=== PATIENT | male | born 1940 | race Caucasian/White ===

== ENCOUNTER 2018-01-13 08:12 | Outpatient (CLI) | payer MEDICARE ==
--- NOTE | 2018-01-13 10:09 | CT ---
CT ANGIO CHEST WITH AND WITHOUT IV CONTRAST: Date: 01/13/18 HISTORY: Atrial fibrillation. Open heart surgery. Exam performed for venous mapping prior to ablation of atria l fibrillation. FINDINGS/IMPRESSION: Please see metal gauge maker's report for coronary and cardiac findings. There are vascular calcifications without evidence of aneurysmal dilatation of the thoracic aorta. No pleural or pericardial effusions are seen. There are mild dependent changes in the posterior lung fi elds. Degenerative changes are present in the spine. A small hiatal hernia is seen. POS: JEAN
[2018-01-13] MEDS ORDERED: Iopamidol 370 76% 100 ML VIAL ONE (16:50)
== END 2018-01-13 08:13 | disposition home or self-care (01) ==
LOC: CT 08:12
PROVIDERS: ATTEND Internal Medicine Cardiovascular Disease
DX: I48.1 Persistent atrial fibrillation (principal); R06.02 Shortness of breath; I70.0 Atherosclerosis of aorta; M47.899 Other spondylosis, site unspecified; K44.9 Diaphragmatic hernia without obstruction or gangrene; Z01.818 Encounter for other preprocedural examination
CPT/HCPCS: 71275; 80048; 82565; 85027; 85610; 85730; 93005; 93010

== ENCOUNTER 2018-01-13 10:46 | Outpatient (CLI) | payer MEDICARE ==
[2018-01-13 12:33] LABS: Hemoglobin 10.1 g/dL (14.0-18.0); Mean Corpuscular HGB CONC 31.3 g/dL (32.0-36.0); Mean Corpuscular Hemoglobin 23.5 pg (27.0-31.0); Mean Platelet Volume 10.1 fL (7.4-10.4); Platelet Count 217 thou/uL (130-400); RBC Distribution Width 14.1 % (11.5-14.5); Red Blood Cell (RBC) Count 4.32 mill/uL (4.70-6.10); White Blood Cell (WBC) Count 7.5 thou/uL (4.8-10.8)
[2018-01-13 12:38] LABS: INR-International Normal Ratio 1.1; PTT 29.4 SEC (22.9-36.1); Prothrombin Time 13.8 SEC (12.0-14.7)
[2018-01-13 12:58] LABS: Anion Gap 10 mmol/L (10-20); BUN (Urea Nitrogen) 17 mg/dL (8.4-25.7); Calc. Creatinine Clearance 0 mL/min (70-130); Calcium 9.2 mg/dL (7.8-10.44); Carbon Dioxide 25 mmol/L (23-31); Chloride 104 mmol/L (98-107); Estimated GFR-MDRD 81; Glucose 103 mg/dL (83-110); Potassium 3.8 mmol/L (3.5-5.1); Sodium 135 mmol/L (136-145)
--- NOTE | 2018-03-19 08:34 | EKG ---
Test Reason : Blood Pressure : / mmHG Vent. Rate : 055 BPM Atrial Rate : 050 BPM P-R Int : 000 ms QRS Dur : 144 ms QT Int : 464 ms P-R-T Axes : 000 -20 042 degrees QTc Int : 443 ms Atrial fibrillation with slow ventricular response Right bundle branch block Inferior infarct , age undetermined Abnormal ECG No previous ECGs available Confirmed by JORGE GOMEZ MD ([id number]) on 03/19/2018 8:33:43 AM Referred By: LI Confirmed By:JORGE GOMEZ MD
== END 2018-01-13 10:47 | disposition home or self-care (01) ==
LOC: LABBT 10:46
PROVIDERS: ATTEND Internal Medicine Cardiovascular Disease
DX: Z01.818 Encounter for other preprocedural examination (principal); I48.91 Unspecified atrial fibrillation
CPT/HCPCS: 80048; 85027; 85610; 85730; 93005; 93010

== ENCOUNTER 2018-01-20 11:53 | Day surgery (SDC) | payer MEDICARE ==
[2018-01-13 11:26] VITALS: BMI 31.3
[2018-01-20] MEDS ORDERED: Heparin 30,000 units/30 ml VIAL ONE (14:57)
[2018-01-20] MEDS ORDERED: Ondansetron HCl/PF 4 MG/2 ML Vial ONE (14:57)
[2018-01-20] MEDS ORDERED: Propofol 200 MG/20 ML VIAL ONE (14:57)
[2018-01-20] MEDS ORDERED: PHENYLEPHRINE-NS 100 MCG/ML 10 ML SYRINGE ONE (14:57)
[2018-01-20] MEDS ORDERED: Heparin 10,000 UNITS/1 ML VIAL ONE ×2 (15:15→15:32)
[2018-01-20] MEDS ORDERED: Phenylephrine HCL 10 MG/ML VIAL ONE (15:20)
[2018-01-20] MEDS ORDERED: Fentanyl 100 MCG/2 ML VIAL ONE ×2 (15:20→18:05)
[2018-01-20] MEDS ORDERED: Lidocaine 1% (PF) 30 ML VIAL ONE (15:26)
[2018-01-20] MEDS ORDERED: Furosemide 40 MG/4 ML VIAL ONE (15:32)
[2018-01-20] MEDS ORDERED: Protamine Sulfate 50 MG/5 ML VIAL ONE (15:32)
[2018-01-20] MEDS ORDERED: Isoproterenol 0.2 MG/1 ML AMP ONE (16:14)
[2018-01-20] MEDS ORDERED: Ondansetron HCl/PF 4 MG/2 ML Vial IVP PRN ×2 (18:26→20:10)
[2018-01-20] MEDS ORDERED: Promethazine HCl 25 MG/ML VIAL IM PRN (18:26)
[2018-01-20] MEDS ORDERED: Promethazine HCl 25 MG/ML VIAL SLOW IVP PRN (18:26)
[2018-01-20] MEDS ORDERED: Meperidine HCl/PF 25 MG/ML VIAL ONE (18:42)
--- NOTE | 2018-01-20 19:13 | OP ---
DATE OF PROCEDURE: 01/20/2018 PROCEDURES: 1. Comprehensive EP testing with 3D mapping and ablation of atrial fibrillation. 2. Transseptal catheterization x2. 3. Cardiac medication infusion. CLINICAL INDICATION: Persistent atrial fibrillation. PNEUMATIC TESTER: Tobias Rosado M.D. ASA CLASSIFICATION: III. ANESTHESIA: General endotracheal anesthesia. ESTIMATED BLOOD LOSS: 5 mL TOTAL FLUOROSCOPY TIME: Zero. TOTAL RADIOFREQUENCY TIME: 61 minutes and 36 seconds. ACUTE COMPLICATIONS: None. METHODS: After informed consent was obtained, the patient taken to the EP lab in a fasting state. [facility] groins were prepped and draped using ultrasound guidance. The right and left femoral veins were accessed and wires were inserted into the central venous systems. The wires were used to place an 11 Nigerien and 8 Nigerien sheath in the left groin, two 8 Nigerien sheath in the right groin and all 8 Frenc h sheaths were then replaced by long sheaths for catheter stability. A 10 Nigerien echo probe was plac ed in the left groin advanced to the right atrium and the right ventricle for imaging. A 7 Nigerien 20 pole catheter was placed in the left groin, advanced into the coronary sinus. A circular ablation c atheter placed in right groin and advanced to the right atrium and the coronary sinus. A 3D map was obtained using the [employer] 3D mapping system. The patient was anticoagulated and transsepta l catheterization was performed twice. A 3D map was obtained the left atrium and an esophageal tempe rature probe was placed in the esophagus co-located with a sensored catheter for positioning within t 3D mapping system. Ablation was delivered completely isolating all four pulmonary veins and the p osterior wall of the left atrium. Ablation was also delivered to debulk the coronary sinus. The pat ient underwent cardioversion restoring sinus rhythm. No further sustained arrhythmias are seen. Aft er an observation period, catheters were withdrawn. Heparin reversed, sheaths were pulled. Hemostas is was achieved with direct pressure. RESULTS: 1. Baseline intervals, HV interval 36 milliseconds. Patient was then coarse atrial fibrillation at the beginning of procedure. 2. Aggressive antral isolation was performed of all four pulmonary veins, left atrium, as well as th e area over the coronary sinus from the left atrial positions as well as ablation within the coronary sinus for isolation and debulking of the coronary sinus. 3. Ablation detail with total of 61 minutes and 36 seconds were delivered with a [employer] Chandler op en, irrigated ablation catheter to isolate the posterior wall and the pulmonary veins of the left atr ium and to debulk the coronary sinus. IMPRESSION: Successful ablation of left atrial triggers for atrial fibrillation including vein isola tion and posterior wall isolation. RECOMMENDATION: Continue with oral anticoagulation for at least 3-6 months.
[2018-01-20] MEDS ORDERED: Mag-Al 1200 mg/1200 mg/30 ML UDCUP PO PRN (20:10)
[2018-01-20] MEDS ORDERED: diphenhydrAMINE 25 MG CAP PO PRN (20:10)
[2018-01-20] MEDS ORDERED: Bisacodyl 5 MG TAB PO PRN (20:10)
[2018-01-20] MEDS ORDERED: Temazepam 15 MG CAP PO PRN (20:10)
[2018-01-20] MEDS ORDERED: Silver Sulfadiazine 1% Cream 50 GM JAR TOP PRN (20:10)
[2018-01-20] MEDS ORDERED: Acetaminophen 325 MG TAB PO PRN (20:10)
[2018-01-20] MEDS ORDERED: traMADol HCl 50 MG TAB PO PRN (20:10)
[2018-01-20] MEDS ORDERED: Bisacodyl 10 MG SUPP PR PRN (20:10)
[2018-01-20] MEDS ORDERED: Nitroglycerin 0.4 MG TAB (25 Tab Bottle) SL PRN (20:10)
[2018-01-20] MEDS ORDERED: Atorvastatin Calcium 40 MG TAB PO SCH (21:00)
[2018-01-20] MEDS ORDERED: metFORMIN 500 MG TAB PO SCH (21:00)
[2018-01-20] MEDS ORDERED: Calcium Polycarbophil 625 MG TAB PO SCH (21:00)
[2018-01-20] MEDS ORDERED: Calcium Carbonate 600 MG TAB PO SCH (21:00)
[2018-01-20] MEDS: Fish Oil 1,000 MG CAP PO SCH (21:17)
[2018-01-21] MEDS: Apixaban 5 MG TAB PO SCH ×2 (03:37→08:46)
[2018-01-21] MEDS: Fish Oil 1,000 MG CAP PO SCH (08:47)
[2018-01-21] MEDS ORDERED: Atenolol 25 MG TAB PO SCH (09:00)
[2018-01-21] MEDS ORDERED: Losartan 25 MG TAB PO SCH (09:00)
[2018-01-21] MEDS ORDERED: Hydrochlorothiazide 25 MG TAB PO SCH (09:00)
[2018-01-21] MEDS ORDERED: Multivitamin W/ Minerals 1 TAB PO SCH (09:00)
[2018-01-21] MEDS ORDERED: Amlodipine 5 MG TAB PO SCH (09:00)
[2018-01-21] MEDS ORDERED: Aspirin 81 mg Enteric Coated Tablet PO SCH (09:00)
[2018-01-21 10:57] LABS: Hemoglobin 10.2 g/dL (14.0-18.0); Platelet Count 201 thou/uL (130-400)
[2018-01-21 11:12] VITALS: BP 112/69; TEMP 98
[2018-01-21] MEDS ORDERED: Furosemide 40 MG TAB PO SCH (13:15)
--- NOTE | 2018-01-21 22:25 | DIS ---
DATE OF SERVICE: 01/21/2018 REFERRING PHYSICIAN: Yarelis Ortiz M.D. I am discharging Mr. Wells from our [facility]. His admitting diagnoses were, 1. Chronic persistent atrial fibrillation approximately in 05/2017. 2. Chronic artery disease with bypass grafting surgery in 2000. B. Occluded graft for left heart catheterization on 07/11/2017 with preserved left ventricular function. 3. Coronary artery disease risk factors including diabetes, hypertension, hyperlipidemia. 4. Status post elective pulmonary venous isolation and left atrial ablation procedure by Dr. Rosado on 01/19/2018 with also ablating the coronary sinus, basal left atrium, eventual cardioversion and showing sinus rhythm. Total radiofrequency time of 61 minutes and 36 seconds. HOSPITAL COURSE: Mr. Wells is tolerating procedure well. Subsequently, he remained stable. PHYSICAL EXAMINATION: VITAL SIGNS: Blood pressure 112/69, heart rate 86, respiratory rate 16, temperature 98.3 Fahrenheit, O2 sats are 97%. Telemetry strips reveal sinus rhythm. Reveals no significant groin hematoma. NECK: Neck veins are not distended. CHEST: Coarse, no crackles. HEART: Heart sounds are regular to rate and rhythm, no murmur or gallop. ABDOMEN: Benign. Bowel sounds positive. He had about minimal urinary hesitation and was able to void later freely. Our plan is to discharge him home with his usual medications. Also adding Carafate 1 g four times a day for two weeks, Protonix 40 mg daily for another month. He was given Lasix and potassium, 4 mg Lasix to be taken for three days and as needed, potassium along with it. He was also given colchicine 0.3 mg daily for prevention of post-ablation pericarditis( 0.3 mg daily for a week). The patient is to follow up in our office about six weeks. All questions of the patient, family and staff answered. Spent total of 45 minutes with the above and preparing this report. MASOOD
== END 2018-01-21 15:07 | disposition home or self-care (01) ==
LOC: CCL 11:53 → 2SW 19:09 → CCL 01-21 15:07
PROVIDERS: ATTEND Internal Medicine Cardiovascular Disease
PROC: 5A2204Z Restoration of Cardiac Rhythm, Single (ICD-10-PCS; principal; 2018-01-20)
DX: I48.1 Persistent atrial fibrillation (principal); I25.10 Atherosclerotic heart disease of native coronary artery without angina pectoris; I10 Essential (primary) hypertension; E11.9 Type 2 diabetes mellitus without complications; E78.5 Hyperlipidemia, unspecified; Z88.0 Allergy status to penicillin
CPT/HCPCS: 76942; 82565; 82962; 85014; 85018; 85049; 85347 ×2; 92960; 93613; 93623; 93656; 96374; C1731; C1732 ×3; C1759; C1769; 36415; 36416; 93005; 93010; J1644; J1940; J2001; J2175; J2370; J2405; J2704; J2720; J3010

== ENCOUNTER 2018-01-27 10:01 | Outpatient (CLI) | payer MEDICARE ==
[2018-01-27 10:55] LABS: Hemoglobin 9.4 g/dL (14.0-18.0); Mean Corpuscular HGB CONC 31.6 g/dL (32.0-36.0); Mean Corpuscular Hemoglobin 23.1 pg (27.0-31.0); Mean Corpuscular Volume 72.9 fl (80.0-94.0); Mean Platelet Volume 9.1 fL (7.4-10.4); Platelet Count 210 thou/uL (130-400); RBC Distribution Width 14.9 % (11.5-14.5); Red Blood Cell (RBC) Count 4.09 mill/uL (4.70-6.10)
[2018-01-27 11:00] LABS: INR-International Normal Ratio 1.3; PTT 33.3 SEC (22.9-36.1)
[2018-01-27 11:19] LABS: Anion Gap 10 mmol/L (10-20); BUN (Urea Nitrogen) 16 mg/dL (8.4-25.7); Calc. Creatinine Clearance 0 mL/min (70-130); Calcium 9.3 mg/dL (7.8-10.44); Carbon Dioxide 27 mmol/L (23-31); Chloride 100 mmol/L (98-107); Estimated GFR-MDRD 67; Glucose 103 mg/dL (83-110); Potassium 3.1 mmol/L (3.5-5.1); Sodium 134 mmol/L (136-145)
--- NOTE | 2018-01-28 08:09 | EKG ---
Test Reason : Blood Pressure : / mmHG Vent. Rate : 071 BPM Atrial Rate : 234 BPM P-R Int : 000 ms QRS Dur : 152 ms QT Int : 430 ms P-R-T Axes : 000 021 047 degrees QTc Int : 467 ms Atrial fibrillation Right bundle branch block Cannot rule out Inferior infarct , age undetermined Abnormal ECG When compared with ECG of 21-JAN-2018 05:15, Atrial fibrillation has replaced Sinus rhythm Confirmed by DR. Kwan LANDA ([id number]) on 01/28/2018 8:08:55 AM Referred By: [facility] Confirmed By:DR. Kwan LANDA
== END 2018-01-27 10:02 | disposition home or self-care (01) ==
LOC: LABBT 10:01
PROVIDERS: ATTEND Internal Medicine Cardiovascular Disease
DX: Z01.818 Encounter for other preprocedural examination (principal); I48.91 Unspecified atrial fibrillation
CPT/HCPCS: 80048; 85027; 85610; 85730; 93005; 93010

== ENCOUNTER 2018-01-30 09:58 | Day surgery (SDC) | payer MEDICARE ==
[2018-01-27 10:15] VITALS: BMI 31.4
[2018-01-30] MEDS ORDERED: Diprivan 20 ML ONE (13:14)
--- NOTE | 2018-01-30 14:05 | OP ---
DATE OF SERVICE: 01/30/2018 REFERRING PHYSICIAN: Dr. Rosado and Dr. Ortiz. REASON FOR PROCEDURE: Mr. Wells is a 77-year-old man with history of persistent atrial fibrillatio n/atypical flutters. He underwent a pulmonary venous isolation procedure on 01/20/2018. He had a re currence and we started Multaq, but so far no chemical cardioversion occurred. He has been continuin g on his blood thinners to his Eliquis. Here for cardioversion. PROCEDURE: Patient received propofol for deep sedation. After adequate sedation achieved, a synchro nized 75 joule shock did not, but subsequent 150 joule shock probably converted the patient back to s inus rhythm. CONCLUSION: Successful cardioversion. PLAN: Continue Multaq and Eliquis for now. Discontinuation of Multaq at a later date.
[2018-01-30] MEDS ORDERED: Propofol 200 MG/20 ML VIAL ONE (16:47)
== END 2018-01-30 14:18 | disposition home or self-care (01) ==
LOC: CCL 09:58
PROVIDERS: ATTEND Internal Medicine Cardiovascular Disease
PROC: 5A2204Z Restoration of Cardiac Rhythm, Single (ICD-10-PCS; principal; 2018-01-30)
DX: I48.1 Persistent atrial fibrillation (principal); I48.4 Atypical atrial flutter; I25.10 Atherosclerotic heart disease of native coronary artery without angina pectoris; E78.5 Hyperlipidemia, unspecified; I10 Essential (primary) hypertension; E11.9 Type 2 diabetes mellitus without complications; Z79.01 Long term (current) use of anticoagulants; Z79.82 Long term (current) use of aspirin; Z79.84 Long term (current) use of oral hypoglycemic drugs; Z79.899 Other long term (current) drug therapy; Z88.0 Allergy status to penicillin; Z98.61 Coronary angioplasty status; Z95.1 Presence of aortocoronary bypass graft; Z98.890 Other specified postprocedural states
CPT/HCPCS: 92960; J2704

== ENCOUNTER 2018-03-10 13:28 | Inpatient (IN) | payer MEDICARE ==
[2018-03-10 15:01] LABS: ALT (SGPT) 24 U/L (8-55); AST (SGOT) 18 U/L (5-34); Albumin 3.7 g/dL (3.4-4.8); Alkaline Phosphatase 39 U/L (40-150); Anion Gap 11 mmol/L (10-20); BUN (Urea Nitrogen) 27 mg/dL (8.4-25.7); Bilirubin, Total 0.6 mg/dL (0.2-1.2); CK (CPK) 68 U/L (30-200); Calc. Creatinine Clearance 0 mL/min (70-130); Calcium 8.7 mg/dL (7.8-10.44); Carbon Dioxide 24 mmol/L (23-31); Chloride 106 mmol/L (98-107); Estimated GFR-MDRD 55; Globulin 2.3 g/dL (2.4-3.5); Glucose 103 mg/dL (83-110); Potassium 4.5 mmol/L (3.5-5.1); Sodium 136 mmol/L (136-145)
[2018-03-10 15:02] LABS: CKMB 1.8 ng/mL (0-6.6); Troponin I Less than 0.010 ng/mL (< 0.028)
[2018-03-10 15:04] LABS: #Basophils 0.1 thou/uL (0.0-0.2); #Eosinphils 0.1 thou/uL (0.0-0.7); #Lymphocytes 1.5 thou/uL (1.20-3.40); #Monocytes 0.6 thou/uL (0.11-0.59); #Neutrophils 3.9 thou/uL (1.40-6.50); %Basophils 1.3 % (0.0-1.0); %Eosinophils 1.7 % (0.0-10.0); %Lymphocytes 24.2 % (21.0-51.0); %Monocytes 9.6 % (0.0-10.0); %Neutrophils 63.2 % (42.0-75.0); Anisocytosis SLIGHT = 6-15 cells (100X) (0-5/hpf); Band 1 % (5-11); Elliptocytes SLIGHT = 2-5 cells (100X) (0-1/hpf); Eosinophils 1 % (0-10); Hemoglobin 5.2 g/dL (14.0-18.0); Hypochromia MODERATE=16-30 cells (100X) (0-5/hpf); Lymphocytes 16 % (21-51); MDiff Complete? YES; Mean Corpuscular HGB CONC 31.5 g/dL (32.0-36.0); Mean Corpuscular Hemoglobin 21.6 pg (27.0-31.0); Mean Corpuscular Volume 68.6 fl (80.0-94.0); Mean Platelet Volume 8.7 fL (7.4-10.4); Microcytosis SLIGHT = 6-15 cells (100X) (0-5/hpf); Monocytes 8 % (0-10); Neutrophil 72 % (42-75); PLT Morphology Comment Appears Adequate; Platelet Count 236 thou/uL (130-400); RBC Distribution Width 14.6 % (11.5-14.5); Reactive Lymphocytes 1 % (0-10); Red Blood Cell (RBC) Count 2.41 mill/uL (4.70-6.10); Reflex for Review?? YES; White Blood Cell (WBC) Count 6.1 thou/uL (4.8-10.8)
[2018-03-10 16:03] LABS: Reticulocyte Count 4.3 % (0.5-1.5)
[2018-03-10 16:04] LABS: Iron 8 ug/dL (65-175); Iron Binding Capacity, Total 413 mcg/dL (261-462)
[2018-03-10 16:37] LABS: Folate (Folic Acid) 15.5 ng/mL (7.0-31.4)
[2018-03-10] MEDS ORDERED: Ondansetron ODT 4 MG TAB SL PRN (17:29)
[2018-03-10] MEDS ORDERED: Acetaminophen 325 MG TAB PO PRN ×2 (17:29→19:39)
[2018-03-10] MEDS ORDERED: Ondansetron PF 4 MG/2 ML Vial IVP PRN ×2 (17:29→19:39)
[2018-03-10 17:38] VITALS: BMI 32.1
[2018-03-10 18:36] LABS: Hemoglobin 5.1 g/dL (14.0-18.0); Platelet Count 220 thou/uL (130-400)
[2018-03-10 18:47] LABS: Troponin I Less than 0.010 ng/mL (< 0.028)
[2018-03-10] MEDS ORDERED: HumaLOG 300 UNITS/3 ML VIAL SC PRN (19:39)
[2018-03-10] MEDS ORDERED: Dextrose 5% in Water 1,000 ML IV PRN (19:39)
[2018-03-10] MEDS ORDERED: Ondansetron ODT 4 MG TAB PO PRN (19:39)
[2018-03-10] MEDS ORDERED: Dextrose 50% Abboject 50 ML SYRINGE SLOW IVP PRN (19:39)
[2018-03-11] MEDS: Pantoprazole 40 MG VIAL IVP SCH ×3 (00:22→20:55)
[2018-03-11] MEDS: Sodium Chloride 0.9% 1,000 ML IV SCH ×3 (04:02→19:13)
[2018-03-11 05:03] LABS: Hemoglobin 7.9 g/dL (14.0-18.0)
[2018-03-11 05:21] LABS: Anion Gap 7 mmol/L (10-20); BUN (Urea Nitrogen) 20 mg/dL (8.4-25.7); Calc. Creatinine Clearance 89 mL/min (70-130); Calcium 8.4 mg/dL (7.8-10.44); Carbon Dioxide 24 mmol/L (23-31); Chloride 107 mmol/L (98-107); Estimated GFR-MDRD 79; Glucose 93 mg/dL (83-110); Potassium 4.1 mmol/L (3.5-5.1); Sodium 134 mmol/L (136-145)
[2018-03-11 05:38] LABS: #Eosinphils 0.2 thou/uL (0.0-0.7); #Lymphocytes 1.8 thou/uL (1.20-3.40); #Monocytes 0.9 thou/uL (0.11-0.59); #Neutrophils 4.1 thou/uL (1.40-6.50); %Basophils 0.4 % (0.0-1.0); %Lymphocytes 26.1 % (21.0-51.0); %Neutrophils 57.6 % (42.0-75.0); Hemoglobin 7.9 g/dL (14.0-18.0); Mean Corpuscular HGB CONC 32.2 g/dL (32.0-36.0); Mean Corpuscular Hemoglobin 24.5 pg (27.0-31.0); Mean Platelet Volume 8.6 fL (7.4-10.4); Platelet Count 231 thou/uL (130-400); RBC Distribution Width 17.1 % (11.5-14.5); Red Blood Cell (RBC) Count 3.23 mill/uL (4.70-6.10)
--- NOTE | 2018-03-11 09:26 | CON ---
DATE OF CONSULTATION: 03/11/2018 HISTORY OF PRESENT ILLNESS: The patient is a 77-year-old male who was in his normal state of health until a few days prior to admission when he developed progressive shortness of breath and d izziness with walking. He had no syncope and no chest pain. For several weeks prior to admission, thuan kirkpatrick noticed his stools were darker brown in color. He had no nausea or vomiting. He did have some epi gastric pain. He has had no weight loss, nausea, vomiting or other changes. The patient has been on Eliquis. He thinks for less than a year for atrial fibrillation. He is a patient of Dr. Garrido and has undergone upper endoscopy in 04/2015 for surveillance of Arenas's esophagus. He has short segme nt Arenas's, medium hiatal hernia and a gastric ulcer. This was all biopsied and stomach biopsy shira wed reactive gastropathy. No Helicobacter pylori. Arenas's biopsies showed Arenas's mucosa. [place] noscopy was performed at the same time for history of colon polyps. This showed moderate diverticula and internal hemorrhoids. PAST MEDICAL HISTORY: Includes coronary artery disease, diabetes mellitus, hyperlipidemia, hypertens ion, myocardial infarction. PAST MEDICAL HISTORY: Includes cardiac stent, coronary artery bypass, prostate surgery, hand surgery . ALLERGIES: Include PENICILLIN. MEDICATIONS: Include Norvasc 1 p.o. daily, atorvastatin 1 p.o. at bedtime, aspirin 81 mg 1 p.o. paty y, Eliquis 1 p.o. b.i.d., calcium carbonate 1 p.o. q.p.m., fish oil 1 p.o. b.i.d., multivitamin 1 p.o . daily, hydrochlorothiazide 1 p.o. day, nitroglycerin 1 p.o. q.4 hours p.r.n. chest pain, losartan 1 p.o. daily, Carafate 1 gram p.o. q.6 hours, omeprazole he thinks dose was 40 mg b.i.d. and recently changed to once daily, metformin 500 mg 1 p.o. daily. SOCIAL HISTORY: Does not smoke or drink. FAMILY HISTORY: Negative for GI or liver disease. REVIEW OF SYSTEMS: CONSTITUTIONAL: No fever or chills, no weight loss. EYES: No blurred vision or double vision. ENT: No sore throat or earaches. CARDIOVASCULAR: No chest pain or palpitations. PULMONARY: Positive for shortness of breath and dyspnea on exertion. GASTROINTESTINAL: See above. GENITOURINARY: No hematuria or dysuria. MUSCULOSKELETAL: No joint pain or muscle pain. SKIN: No rashes. NEUROLOGIC: No numbness or seizure activity, no syncope. PHYSICAL EXAMINATION: GENERAL: Shows a pale white male in no acute distress. VITAL SIGNS: Temperature 98.4, pulse is 62, respiratory rate 18, blood pressure 140/63. HEENT: Unremarkable. NECK: Supple. CHEST: Clear. CARDIOVASCULAR: Regular rate and rhythm. ABDOMEN: Soft and nontender without organomegaly or masses. Bowel sounds are present and normoactiv e. RECTAL: Deferred. EXTREMITIES: Normal. LABORATORY DATA: Shows admission hemoglobin of 5.2, hematocrit of 16.5, MCV of 68.6. Reticulocyte c ount was 4.3. After transfusion, his hemoglobin 7.9. Chemistries; vitamin B12 is 368. Folate is 15 .5. Iron is 8, TIBC is 424, percent saturation of 2. ASSESSMENT: 1. Severe symptomatic iron deficiency anemia. 2. Atrial fibrillation on Eliquis. 3. History of Arenas's esophagus. 4. History of gastric ulcer. 5. Coronary artery disease. 6. Diabetes mellitus. 7. Hypertension. RECOMMENDATIONS: 1. Hold Eliquis. 2. EGD tomorrow. 3. IV PPI. 4. Resume diet today, n.p.o. after midnight. 5. Serial hemoglobin and hematocrit.
[2018-03-11] MEDS ORDERED: Amlodipine 5 MG TAB PO SCH (09:30)
--- NOTE | 2018-03-11 12:30 | PDOC.PN ---
- Subjective Encounter Start Date: 03/11/18 Encounter Start Time: 09:15 Pt did well overnight, no palpitations, no CP, no SOB. received 2 units PRBCs, not three initially ordered, Hgb to 7.9. Deneis any rectal bleeding, no F/C, no N/V/D/C, no cough. feels stronger. BP creeping up 10 point ROS performed and neg for all systems except as per HPI - Objective Resuscitation Status: Resuscitation Status FULL:Full Resuscitation MAR Reviewed: Yes Vital Signs & Weight: Vital Signs (12 hours) Temp Pulse Pulse Resp BP BP BP 03/11/18 09:57 56 L 123/58 L 03/11/18 08:20 98.5 F 56 L 17 123/58 L 03/11/18 03:55 98.4 F 62 18 140/63 Pulse Ox 03/11/18 09:57 03/11/18 08:20 97 03/11/18 03:55 97 Weight Weight 211 lb 1 oz I&O: 03/10/18 03/11/18 03/12/18 06:59 06:59 06:59 Intake Total 1817 Output Total 1500 Balance 317 Result Diagrams: 03/11/18 04:48 03/11/18 04:48 Additional Labs: Accuchecks 03/11/18 03/10/18 05:48 20:24 POC Glucose 106 198 H Radiology Reviewed by me: Yes EKG Reviewed by me: Yes Phys Exam - Physical Examination Constitutional: NAD HEENT: PERRLA, moist MMs, sclera anicteric, oral pharynx no lesions Neck: no nodes, no JVD, supple, full ROM Respiratory: no wheezing, no rales, no rhonchi, clear to auscultation bilateral Cardiovascular: RRR, no significant murmur, no rub Gastrointestinal: soft, non-tender, no distention, positive bowel sounds Musculoskeletal: no edema, pulses present Neurological: non-focal, normal sensation, moves all 4 limbs Lymphatic: no nodes Psychiatric: normal affect, A&O x 3 Skin: no rash, normal turgor, cap refill <2 seconds Dx/Plan (1) UGIB (upper gastrointestinal bleed) Code(s): K92.2 - GASTROINTESTINAL HEMORRHAGE, UNSPECIFIED Status: Chronic Comment: microcytic anemia, stable between measurements, up 3g after 2 units of PRBCs, give 3rd now. q12h protonix. Gi to scope in AM (2) History of Arenas's esophagus Code(s): Z87.19 - PERSONAL HISTORY OF OTHER DISEASES OF THE DIGESTIVE SYSTEM Status: Acute (3) Chronic blood loss anemia Code(s): D50.0 - IRON DEFICIENCY ANEMIA SECONDARY TO BLOOD LOSS (CHRONIC) Status: Acute (4) Iron deficiency anemia due to chronic blood loss Code(s): D50.0 - IRON DEFICIENCY ANEMIA SECONDARY TO BLOOD LOSS (CHRONIC) Status: Acute (5) CAD (coronary artery disease) Code(s): I25.10 - ATHSCL HEART DISEASE OF [place] CORONARY ARTERY W/O ANG PCTRS Status: Chronic Qualifiers: Coronary Disease-Associated Artery/Lesion type: [place] artery [place] vs. transplanted heart: [place] heart Associated angina: without angina Qualified Code(s): I25.10 - Atherosclerotic heart disease of [place] coronary artery without angina pectoris (6) DM2 (diabetes mellitus, type 2) Status: Chronic Qualifiers: Diabetes mellitus nursing home insulin use: without keno terminal operator use Diabetes mellitus complication status: without complication Qualified Code(s): E11.9 - Type 2 diabetes mellitus without complications (7) HTN (hypertension) Code(s): I10 - ESSENTIAL (PRIMARY) HYPERTENSION Status: Chronic Qualifiers: Hypertension type: essential hypertension Qualified Code(s): I10 - Essential (primary) hypertension (8) HLD (hyperlipidemia) Code(s): E78.5 - HYPERLIPIDEMIA, UNSPECIFIED Status: Chronic Qualifiers: Hyperlipidemia type: unspecified Qualified Code(s): E78.5 - Hyperlipidemia , unspecified (9) Paroxysmal A-fib Code(s): I48.0 - PAROXYSMAL ATRIAL FIBRILLATION Status: Chronic Comment: s/ p cardioveriosn - failed, s/p recent ablation - recurred, cardioversion, holding on multaq to amiodarone, now amio stopped due to side effects. - Plan cont current plan of care, plan discussed w/ family, respiratory therapy, out of bed/ambulate * .
--- NOTE | 2018-03-11 16:30 | HP ---
DATE OF ADMISSION: 03/10/2018 TIME OF SERVICE: 193 PRIMARY CARE PHYSICIAN: Dr. Gary Olvera. PRIMARY BOTTOM IRONER: Dr. Osmin Ortiz. PRIMARY MEDICAL PATHOLOGY TEACHER: Dr. Kaufman. CHIEF COMPLAINT: Rectal bleeding and low blood pressure and dizziness. HISTORY OF PRESENT ILLNESS: Mr. Wells is a very pleasant 77-year-old white male with history of co ronary artery disease, diabetes mellitus type 2, GERD, paroxysmal atrial fibrillation status post car dioversion x2 and ablation recently, hypertension, hyperlipidemia who presents to the Emergency [facility] for a low blood pressure and dizziness. The patient gives a history of being initially diagnosed with atrial fibrillation back in 06/2017. Peter kirkpatrick was referred to Dr. Ortiz. During that time, he was placed on medications for management. He was ultimately referred to shoe handler. He was attempted on Multaq initially, but during the 30 day initiation of medications, he did become more anxious and tachycardic he felt and was granado sitioned to amiodarone. Due to the loading dose of amiodarone, he felt the same way and ultimately d iscontinued that. He underwent cardioversion, it sounds like in 11/2017 or 12/2017, but failed and reverted back to atr ial fibrillation. He subsequently underwent ablation with Dr. Kaufman's associate, and had initial good response, but then again reverted back to atrial fibrillation. It was around this time that he was converted from Multaq to amiodarone. He subsequently was re-cardioverted early in 01/2018, he has maintained sinus rhythm since then likel y because of the on board amiodarone. For his atrial fibrillation, he was started on Eliquis back in 06/2017, has been maintained on that. He notes, since that time, his stool seemed to be getting darker and has been dark, more formed stoo l, again since the same time he was transitioned from Multaq to amiodarone this year. He has been having progressive problems with low blood pressure and has self-discontinued his own los ann marie and when his blood pressure is fairly low, he also hold his other blood pressure medicines. He denies any bright red blood per rectum, no hematemesis, he denies any melena, but does have dark c olored formed stools. No nausea, vomiting, diarrhea, constipation. No chest pain or difficulty israel thing at present. He does feel poorly with some upper chest pressure and has these spells with a low blood pressure. He presented to primary care physician for evaluation where he was noted to have a hemoglobin of 5 an d was referred to the emergency department. There, repeat hemoglobin was 5.2, repeat of 5.1, and subsequently called for a direct admit from [facility]. I saw the patient on arrival, he was comfortable lying in bed. He had been typed and crossed for 3 u nits of packed red blood cells and an order was written for 2 units to be transfused. He had no othe r current complaints. PAST MEDICAL HISTORY: 1. Coronary artery disease. He is status post 2-vessel bypass in the past. No recent stress testin g. 2. Diabetes mellitus type 2, non-insulin dependent. 3. Gastroesophageal reflux disease. 4. Hyperlipidemia. 5. Hypertension. 6. Chronic atrial fibrillation. 7. History of Arenas's esophagus and some kind of small gastric ulcer found about 3 years ago. He was on b.i.d. omeprazole for about 2 years and about 1 year ago was discontinued down to once daily o meprazole. PAST SURGICAL HISTORY: Include, 1. Coronary artery bypass grafting x2 vessels in 2000. 2. Cardiac ablation. He thinks on 01/20 and the second cardioversion was on 01/27/2018. HOME MEDICATIONS: 1. Amlodipine 5 mg p.o. daily. 2. Atenolol 25 mg p.o. daily. 3. Atorvastatin 80 mg p.o. at bedtime. 4. Eliquis 5 mg p.o. b.i.d. 5. Hydrochlorothiazide 25 mg p.o. daily. 6. Losartan 50 mg p.o. daily. 7. Metformin 500 mg p.o. daily. 8. Omeprazole 40 mg daily. 9. Nitroglycerin sublingual p.r.n. 10. Aspirin 81 mg daily. 11. Fish oil daily. 12. Calcium 600 mg daily. ALLERGIES: PENICILLIN, I think it causes a rash. FAMILY HISTORY: Negative for clotting or bleeding disorder, no immune dysfunction, no premature angel nary artery disease. SOCIAL HISTORY: Negative for habits x3. His daughter, who is his medical decision maker. He does w armando to be a full code. REVIEW OF SYSTEMS: A 10-point review of systems was performed and is negative for all systems except stated as per HPI. PHYSICAL EXAMINATION: VITAL SIGNS: Temperature is 98.2, pulse 55, blood pressure 133/60, respiratory rate 16, satting 100% on room air. GENERAL: He is awake. He is alert. He is oriented x3. He is well-developed, well-nourished, age a ppropriate appearing white gentleman, appears to be in no distress. HEENT: Normocephalic, atraumatic. Pupils equal, round and react to light bilaterally. Mucous membr anes are moist. No visible lesions or thrush. NECK: Supple. There is no lymphadenopathy, no JVD, no thyromegaly. There is no carotid upstroke. I do not appreciate bruits. LUNGS: Clear with good air movement and a symmetrical chest excursion. No prolonged expiratory phas e. No wheezes, rales or rhonchi. CARDIOVASCULAR: He has normal S1, S2. No S3 or S4. No audible murmurs. ABDOMEN: Soft, it is nontender, nondistended, no masses, no organomegaly. He has no rebound, rigidi ty or guarding. EXTREMITIES: No cyanosis, no clubbing, no edema with 1+ dorsalis pedis, and posterior tibial pulses bilaterally. SKIN: Warm, moist and well perfused. He has no other rashes or lesions. MUSCULOSKELETAL: Large joints appear normal. He has no inflammation, no palpable effusions. NEUROLOGIC: Cranial nerves II through XII are grossly intact. There is no focal deficits, 5/5 stren gth, and normal speech pattern. LABORATORY DATA: Sodium is 136, potassium 4.5, chloride 106, bicarbonate 24, BUN 27, creatinine 1.27 , glucose 103 and calcium of 8.2. Liver function completely within normal limits. CBC showed a white count of 6.1, hemoglobin is 5.1, hematocrit of 16.5 and platelets 256,000. ASSESSMENT AND PLAN: 1. Probable upper gastrointestinal bleed, the patient does have a history of Arenas's esophagus and some kind of a gastric ulcer. He is currently once a day omeprazole, and placed on IV Protonix b.i. d., and we will ask GI to evaluate. In the meantime, we will transfuse 3 units of packed red blood c ells. By the time, he finishes that, we will have morning labs do and we will check morning lab coun t. I suspect this is based on the microcytosis and a severe anemia with a low iron level of 8 that t his is a chronic slow blood loss anemia and likely induced by his Eliquis. Eliquis and aspirin will be on hold, and due to his low blood pressure we will also hold blood pressure medications, and we wi ll follow up on the results of blood transfusion. 2. Acute blood loss anemia, as above. 3. Symptomatic anemia, as above. 4. Coronary artery disease. The patient will get serial cardiac biomarkers to make sure there is no evidence of ischemia. 5. Diabetes mellitus type 2, we will put the patient on a clear liquid diet tonight, serial Accu-Clarice ks and sliding scale insulin has been ordered. 6. Gastroesophageal reflux disease. 7. Hyperlipidemia, on atorvastatin. We will hold for it present. 8. Hypertension, on amlodipine, atenolol, hydrochlorothiazide, and losartan. We will hold these at present for the above-mentioned reason. 9. Paroxysmal atrial fibrillation: Currently holding in sinus rhythm. He is not on any current ant iarrhythmic at this point. 10. History of Arenas's esophagus, we will follow up on GI's recommendations likely involve endosco py. Continue make him clear liquid diet in anticipation of possible endoscopy in the morning.
[2018-03-12 05:14] LABS: #Eosinphils 0.4 thou/uL (0.0-0.7); #Lymphocytes 1.6 thou/uL (1.20-3.40); #Monocytes 1.2 thou/uL (0.11-0.59); #Neutrophils 5.9 thou/uL (1.40-6.50); %Basophils 0.1 % (0.0-1.0); %Eosinophils 3.9 % (0.0-10.0); %Lymphocytes 17.9 % (21.0-51.0); %Monocytes 13.1 % (0.0-10.0); %Neutrophils 64.9 % (42.0-75.0); Hemoglobin 8.4 g/dL (14.0-18.0); Mean Corpuscular HGB CONC 32.2 g/dL (32.0-36.0); Mean Corpuscular Hemoglobin 24.9 pg (27.0-31.0); Mean Corpuscular Volume 77.3 fl (80.0-94.0); Mean Platelet Volume 8.5 fL (7.4-10.4); Platelet Count 209 thou/uL (130-400); RBC Distribution Width 17.1 % (11.5-14.5); Red Blood Cell (RBC) Count 3.39 mill/uL (4.70-6.10); White Blood Cell (WBC) Count 9.1 thou/uL (4.8-10.8)
[2018-03-12 05:31] LABS: Anion Gap 6 mmol/L (10-20); BUN (Urea Nitrogen) 13 mg/dL (8.4-25.7); Calc. Creatinine Clearance 98 mL/min (70-130); Calcium 7.9 mg/dL (7.8-10.44); Carbon Dioxide 23 mmol/L (23-31); Cardiac Risk 2.7 (Less than 4.5); Chloride 110 mmol/L (98-107); Cholesterol 105 mg/dl (< 200 Desired); Estimated GFR-MDRD 88; Glucose 100 mg/dL (83-110); HDL Cholesterol 39 mg/dL (>60 Neg Risk); LDL Cholesterol, Calculated 54 mg/dL; Potassium 4.1 mmol/L (3.5-5.1); Sodium 135 mmol/L (136-145); Triglycerides 60 mg/dL (Less than 150)
[2018-03-12] MEDS: Sodium Chloride 0.9% 1,000 ML IV SCH ×3 (06:21→23:22)
[2018-03-12] MEDS ORDERED: Promethazine HCl 25 MG/ML VIAL IM PRN (08:23)
[2018-03-12] MEDS ORDERED: Ondansetron HCl/PF 4 MG/2 ML Vial IVP PRN (08:23)
[2018-03-12] MEDS ORDERED: Promethazine HCl 25 MG/ML VIAL SLOW IVP PRN (08:23)
--- NOTE | 2018-03-12 08:46 | OP ---
PREOPERATIVE DIAGNOSIS: Gastrointestinal bleed. DESCRIPTION OF PROCEDURE: After informed consent was obtained, the patient was placed in left latera l decubitus position. Anesthesia was administered per the Anesthesia Department. Forward viewing en doscope was inserted in the esophagus under direct visualization with ease and passed to the second p ortion of the duodenum with ease. Second portion of the duodenum and duodenal bulb were normal. The pylorus, antrum, body, fundus, and cardia were normal except few gastric body polyps were noted. Th prashant were consistent with fundic gland polyps and were not bleeding. There was no stigmata of hemorrh age associated with the polyps. Retroflexion in the stomach showed some erythema associated with the waist of the hiatal hernia. This hiatal hernia was medium in size. The esophagus showed a previous ly noted Arenas's esophagus, but no bleeding was noted. No biopsies were taken of the Arenas's. ASSESSMENT: 1. A few small gastric polyps consistent with fundic gland polyps - no stigmata of bleeding. 2. Medium size hiatal hernia with some erythema in the waist without erosion or ulceration. 3. Short segment Arenas's esophagus - no biopsies performed. 4. No blood seen on esophagogastroduodenoscopy. RECOMMENDATIONS: Colonoscopy tomorrow.
[2018-03-12] MEDS: Amlodipine 5 MG TAB PO SCH (09:11)
[2018-03-12] MEDS: Pantoprazole 40 MG VIAL IVP SCH ×2 (09:12→22:52)
--- NOTE | 2018-03-12 11:40 | PDOC.PN ---
- Subjective Encounter Start Date: 03/12/18 Encounter Start Time: 11:39 Pt seen for followup re: GI bleed. Denies chest pain, shortness of breath, fevers or chills. Does not recall seeing blood in stool. - Objective Resuscitation Status: Resuscitation Status FULL:Full Resuscitation MAR Reviewed: Yes Vital Signs & Weight: Vital Signs (12 hours) Temp Pulse Resp BP BP BP Pulse Ox 03/12/18 09:11 65 145/70 H 03/12/18 07:20 98.2 F 66 17 136/67 100 03/12/18 04:00 98.1 F 62 19 128/59 L 96 Weight Weight 212 lb 4.882 oz I&O: 03/11/18 03/12/18 03/13/18 06:59 06:59 06:59 Intake Total 1817 2418 Output Total 1500 2710 Balance 317 -292 Result Diagrams: 03/13/18 11:29 03/12/18 04:57 Additional Labs: Accuchecks 03/12/18 03/12/18 03/11/18 10:59 06:24 20:43 POC Glucose 172 H 96 141 H 03/11/18 16:37 POC Glucose 120 H EKG Reviewed by me: Yes (Tele: NSR) Phys Exam - Physical Examination Obese HEENT: moist MMs, sclera anicteric Neck: supple, full ROM Respiratory: clear to auscultation bilateral Cardiovascular: RRR Gastrointestinal: soft, non-tender Musculoskeletal: pulses present Neurological: moves all 4 limbs Psychiatric: normal affect Dx/Plan (1) GI bleed Code(s): K92.2 - GASTROINTESTINAL HEMORRHAGE, UNSPECIFIED Status: Acute Comment: s/p EGD, report noted. For colonoscopy tomorrow. s/p pRBC transfusions. (2) CAD (coronary artery disease) Code(s): I25.10 - ATHSCL HEART DISEASE OF [place] CORONARY ARTERY W/O ANG PCTRS Status: Chronic Qualifiers: Coronary Disease-Associated Artery/Lesion type: [place] artery [place] vs. transplanted heart: [place] heart Associated angina: without angina Qualified Code(s): I25.10 - Atherosclerotic heart disease of [place] coronary artery without angina pectoris Comment: stable (3) DM2 (diabetes mellitus, type 2) Status: Chronic Qualifiers: Diabetes mellitus half-way insulin use: without half-way use Diabetes mellitus complication status: without complication Qualified Code(s): E11.9 - Type 2 diabetes mellitus without complications Comment: Stable, continue accuchecks and insulin sliding scale. (4) HLD (hyperlipidemia) Code(s): E78.5 - HYPERLIPIDEMIA, UNSPECIFIED Status: Chronic Qualifiers: Hyperlipidemia type: unspecified Qualified Code(s): E78.5 - Hyperlipidemia , unspecified Comment: stable, continue statin. (5) HTN (hypertension) Code(s): I10 - ESSENTIAL (PRIMARY) HYPERTENSION Status: Chronic Qualifiers: Hypertension type: essential hypertension Qualified Code(s): I10 - Essential (primary) hypertension Comment: Monitor vital signs, titrate antihypertensives as needed. (6) Paroxysmal A-fib Code(s): I48.0 - PAROXYSMAL ATRIAL FIBRILLATION Status: Chronic Comment: anticoagulation stopped (7) S/P ablation of atrial fibrillation Code(s): Z98.890 - OTHER SPECIFIED POSTPROCEDURAL STATES; Z86.79 - PERSONAL HISTORY OF OTHER DISEASES OF THE CIRCULATORY SYSTEM Status: Chronic - Plan * . Review of Systems - Review of Systems Constitutional: negative: fever, chills, sweats, weakness, malaise Respiratory: negative: Cough, Shortness of Breath, Hemoptysis, SOB with Excertion, Pleuritic Pain, Wheezing Cardiovascular: negative: chest pain, palpitations, orthopnea, paroxysmal nocturnal dyspnea, edema, light headedness Gastrointestinal: negative: Nausea, Vomiting, Abdominal Pain, Diarrhea, Constipation, Melena, Hematochezia Genitourinary: negative: Dysuria, Frequency, Incontinence, Hematuria, Retention Skin: negative: Rash, Lesions, Sanjay, Bruising - Medications/Allergies Allergies/Adverse Reactions: Allergies Allergy/AdvReac Type Severity Reaction Status Date / Time Penicillins Allergy Verified 01/27/18 10:14 Medications: Current Medications Acetaminophen (Tylenol) 650 mg PO Q4H PRN PRN Reason: Headache/Fever or Pain Amlodipine Besylate (Norvasc) 5 mg PO QAM [facility] Last Admin: 03/12/18 09:11 Dose: 5 mg Dextrose/Water (Dextrose 50%) 25 gm SLOW IVP PRN PRN PRN Reason: Hypoglycemia Glucagon (Glucagon) 1 mg IM PRN PRN PRN Reason: Hypoglycemia Dextrose/Water (D5w) 1,000 mls @ 0 mls/hr IV .Q0M PRN; As Directed PRN Reason: Hypoglycemia Sodium Chloride (Normal Saline 0.9%) 1,000 mls @ 100 mls/hr IV .Q10H [facility] Last Admin: 03/12/18 06:21 Dose: Not Given Insulin Human Lispro (Humalog) 0 units SC .MILD SLIDING SCALE PRN PRN Reason: Mild Correctional Scale Ondansetron HCl (Zofran Odt) 4 mg PO Q6H PRN PRN Reason: Nausea/Vomiting Ondansetron HCl (Zofran) 4 mg IVP Q6H PRN PRN Reason: Nausea/Vomiting Pantoprazole Sodium (Protonix) 40 mg IVP Q12HR [facility] Last Admin: 03/12/18 09:12 Dose: 40 mg Polyethylene Glycol/Electrolytes (Golytely) 4,000 ml PO ONE [facility] Stop: 03/13/18 06:00
[2018-03-12] MEDS ORDERED: Hydrochlorothiazide 25 MG TAB PO PRN (12:12)
[2018-03-12] MEDS ORDERED: PROPOFOL 200 MG/20 ML VIAL ONE (15:42)
[2018-03-12] MEDS ORDERED: Lidocaine 1% PF 5 ML VIAL ONE (15:42)
[2018-03-12] MEDS ORDERED: GoLYTELY 4,000 ml Bottle PO SCH (18:00)
[2018-03-12] MEDS: Sucralfate 1 GM TAB PO SCH (18:03)
[2018-03-12] MEDS ORDERED: metFORMIN 500 MG TAB PO SCH (21:00)
[2018-03-12] MEDS ORDERED: Atorvastatin Calcium 40 MG TAB PO SCH (21:00)
[2018-03-12] MEDS ORDERED: Calcium Polycarbophil 625 MG TAB PO SCH (21:00)
[2018-03-12] MEDS ORDERED: Calcium Carbonate 600 MG TAB PO SCH (21:00)
[2018-03-12] MEDS: Fish Oil 1,000 MG CAP PO SCH (22:52)
[2018-03-13] MEDS: Sucralfate 1 GM TAB PO SCH ×3 (01:25→13:17)
[2018-03-13] MEDS ORDERED: Losartan 25 MG TAB PO SCH (09:00)
[2018-03-13] MEDS ORDERED: Multivitamin W/ Minerals 1 TAB PO SCH (09:00)
[2018-03-13] MEDS ORDERED: Morphine Sulfate 2 MG/ML SYRINGE SLOW IVP PRN (09:38)
[2018-03-13] MEDS ORDERED: Ondansetron HCl/PF 4 MG/2 ML Vial IVP PRN (09:38)
--- NOTE | 2018-03-13 09:54 | OP ---
PREOPERATIVE DIAGNOSES: 1. Gastrointestinal bleed. 2. Anemia secondary to gastrointestinal blood loss. DESCRIPTION OF PROCEDURE: After informed consent was obtained, the patient was placed in the left la teral decubitus position. Anesthesia administered per the Anesthesia Department. Forward viewing en doscope was inserted into the rectum. After perianal inspection, rectal exam were normal. It was pa ssed to the cecum with ease. Cecum, ileocecal valve, and appendiceal orifice was normal. The prep w as good. The terminal ileum was normal. The ascending, transverse, descending, sigmoid, and rectum were normal except for left-sided diverticulosis coli. Retroflexion in the rectum was normal. ASSESSMENT: Left-sided diverticulosis coli. RECOMMENDATIONS: 1. Small bowel capsule endoscopy as an outpatient. 2. Stable for discharge from GI standpoint. 3. Hold Eliquis for a total of 4 days.
[2018-03-13 11:55] LABS: Hemoglobin 8.8 g/dL (14.0-18.0)
[2018-03-13] MEDS: Amlodipine 5 MG TAB PO SCH (13:16)
[2018-03-13] MEDS: Fish Oil 1,000 MG CAP PO SCH (13:16)
[2018-03-13] MEDS: Pantoprazole 40 MG VIAL IVP SCH (13:17)
--- NOTE | 2018-03-13 15:02 | DIS ---
PRIMARY CARE PHYSICIAN: Gary Olvera M.D. DATE OF ADMISSION: 03/10/2018 DATE OF DISCHARGE: 03/13/2018 DISCHARGE DIAGNOSES: 1. Acute blood loss anemia. 2. Symptomatic anemia. CONDITION OF PATIENT ON THE DAY OF DISCHARGE: Stable. I assessed Mr. Wells on the day of discharg e. He denies any chest pain or shortness of breath. Vital signs are stable. S1 and S2 are heard, r egular. Lungs are clear to auscultation bilaterally. CONSULTATIONS DURING THIS HOSPITALIZATION: Gastroenterology, Dr. Evaristo Azevedo. DISCHARGE MEDICATIONS: He has been advised to resume his apixaban on 03/15/2018. Otherwise, no post ge was made to his preadmission home medications as dictated on history and physical note from 2017. HOSPITAL COURSE: Mr. Wells is a pleasant 77-year-old gentleman, who was admitted to [facility] on 03/10/2018 for symptomatic acute blood loss anemia. He received packed RBC tr ansfusions, total of 4 units during this hospitalization, with 1 unit being transfused on the day of discharge. He was seen by Gastroenterology Service and underwent EGD on 03/12/2018. He had a few small gastric polyps consistent with fundic gland polyps, no stigmata of bleeding. He also had a medium sized hiat al hernia with some erythema in the waist without erosion or ulceration. He had short segment Lai t's esophagus, no biopsies were performed. No blood was seen on the EGD. On 03/13/2018, he underwent colonoscopy, which showed left-sided diverticulosis coli. Typing Office Worker recommends holding Eliquis for a total of 4 days and small-bowel capsule endoscopy as an outpatient. He also recommends that patient should be on Eliquis at the time of small-bowel c apsule endoscopy, so that the bleeding sites may be identified. On the day of discharge, he has hemoglobin of 8.8 and he is receiving one unit packed RBCs after this blood test was done in anticipation that his hemoglobin will continue to drop. During this hospital ization, he had triglycerides 60, cholesterol 105, LDL cholesterol 54, and HDL cholesterol 39. Vitam in B12 level was normal at 368. Folate level was normal at 15.5. Many thanks for allowing me to participate in your patient's care. Please feel free to contact me wi th any questions or concerns. DISCHARGE DESTINATION: Home. TOTAL AMOUNT OF TIME SPENT COORDINATING THIS DISCHARGE: 33 minutes.
[2018-03-13 15:43] VITALS: BP 149/75; TEMP 98.2
[2018-03-13] MEDS ORDERED: PROPOFOL 200 MG/20 ML VIAL ONE (16:02)
[2018-03-13] MEDS ORDERED: Lidocaine 1% PF 5 ML VIAL ONE (16:02)
--- NOTE | 2018-03-31 12:18 | EKG ---
Test Reason : Blood Pressure : / mmHG Vent. Rate : 058 BPM Atrial Rate : 058 BPM P-R Int : 166 ms QRS Dur : 130 ms QT Int : 460 ms P-R-T Axes : 073 057 060 degrees QTc Int : 451 ms Sinus bradycardia Right bundle branch block Abnormal ECG Confirmed by EDNA GONZALES, STEVEN ([id number]), purchasing expeditor KWASI WERNER ([id number]) on 03/31/2018 12:18:31 PM Referred By: Confirmed By:STEVEN BISHOP MD
== END 2018-03-13 16:25 | disposition home or self-care (01) | DRG 378 ==
LOC: SCSER 13:28 → 2NO 15:42
PROVIDERS: ADMIT Internal Medicine; ATTEND Internal Medicine
PROC: 30233N1 Transfusion of Nonautologous Red Blood Cells into Peripheral Vein, Percutaneous Approach (ICD-10-PCS; 2018-03-11)
PROC: 0DJ08ZZ Inspection of Upper Intestinal Tract, Via Natural or Artificial Opening Endoscopic (ICD-10-PCS; 2018-03-12)
PROC: 0DJD8ZZ Inspection of Lower Intestinal Tract, Via Natural or Artificial Opening Endoscopic (ICD-10-PCS; principal; 2018-03-13)
DX: K92.1 Melena (principal); D62 Acute posthemorrhagic anemia; I95.9 Hypotension, unspecified; I48.0 Paroxysmal atrial fibrillation; E11.9 Type 2 diabetes mellitus without complications; D50.0 Iron deficiency anemia secondary to blood loss (chronic); I25.10 Atherosclerotic heart disease of native coronary artery without angina pectoris; I10 Essential (primary) hypertension; Z95.1 Presence of aortocoronary bypass graft; Z79.01 Long term (current) use of anticoagulants; Z79.82 Long term (current) use of aspirin; Z88.0 Allergy status to penicillin; K57.30 Diverticulosis of large intestine without perforation or abscess without bleeding; K31.7 Polyp of stomach and duodenum; K44.9 Diaphragmatic hernia without obstruction or gangrene; K22.70 Barrett's esophagus without dysplasia; I25.2 Old myocardial infarction; Z95.5 Presence of coronary angioplasty implant and graft; I45.10 Unspecified right bundle-branch block; E78.2 Mixed hyperlipidemia; K21.0 Gastro-esophageal reflux disease with esophagitis; Z87.891 Personal history of nicotine dependence
CPT/HCPCS: 36415; 36416; 36430; 80048; 80053; 80061; 82553; 82607; 82746; 83540; 83550; 84484; 85014; 85018; 85025; 85046; 85060; 86850; 86900; 86901; 93005; C9113; J2001; J2704; P9016

== ENCOUNTER 2018-03-28 07:16 | Day surgery (SDC) | payer MEDICARE ==
[2018-03-27 13:51] VITALS: BMI 31.0
[2018-03-28 07:38] LABS: #Basophils 0.1 thou/uL (0.0-0.2); #Eosinphils 0.4 thou/uL (0.0-0.7); #Lymphocytes 1.8 thou/uL (1.20-3.40); #Monocytes 0.8 thou/uL (0.11-0.59); #Neutrophils 3.2 thou/uL (1.40-6.50); %Basophils 1.1 % (0.0-1.0); %Lymphocytes 28.9 % (21.0-51.0); %Monocytes 12.2 % (0.0-10.0); %Neutrophils 51.9 % (42.0-75.0); Hemoglobin 10.2 g/dL (14.0-18.0); Mean Corpuscular Hemoglobin 25.5 pg (27.0-31.0); Mean Corpuscular Volume 79.8 fl (80.0-94.0); Mean Platelet Volume 9.2 fL (7.4-10.4); Platelet Count 221 thou/uL (130-400); RBC Distribution Width 18.4 % (11.5-14.5); Red Blood Cell (RBC) Count 4.01 mill/uL (4.70-6.10); White Blood Cell (WBC) Count 6.1 thou/uL (4.8-10.8)
[2018-03-28] MEDS ORDERED: Fentanyl 100 MCG/2 ML VIAL ONE (08:55)
--- NOTE | 2018-03-28 11:39 | OP ---
DATE OF PROCEDURE: 03/28/2018 PROCEDURE: Enteroscopy with control of hemorrhage. PREOPERATIVE DIAGNOSIS: Gastrointestinal bleed. Capsule endoscopy showed bleeding site in the proxi mal small bowel. OPERATIVE NOTE: Informed consent was obtained from the patient. He was sedated with total intraveno us anesthesia. The bite block was placed and the colonoscope was advanced well into the proximal jej unum. The jejunal mucosa was normal. The distal duodenal mucosa was normal. There were multiple sm all 1-2 mm AVMs in the 1st and proximal second portion of the duodenum. These were cauterized with a rgon plasma coagulation. Six or seven AVMs were cauterized. The pylorus was normal. The stomach wa s normal including retroflexed views. There was a 3 cm hiatal hernia present. The Z-line was slight ly irregular. The esophageal mucosa was, otherwise, normal. 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 RECOMMENDATIONS: 1. Repeat CBC in 2 weeks. 2. Follow up in GI clinic in 4 weeks. 3. Restart Eliquis in 2 days.
[2018-03-28] MEDS ORDERED: Lidocaine 1% PF 5 ML VIAL ONE (16:13)
[2018-03-28] MEDS ORDERED: PROPOFOL 200 MG/20 ML VIAL ONE (16:13)
== END 2018-03-28 11:26 | disposition home or self-care (01) ==
LOC: SDC 07:16
PROVIDERS: ATTEND Internal Medicine Gastroenterology
PROC: 0W3P8ZZ Control Bleeding in Gastrointestinal Tract, Via Natural or Artificial Opening Endoscopic (ICD-10-PCS; principal; 2018-03-28)
DX: K92.2 Gastrointestinal hemorrhage, unspecified (principal); Q27.39 Arteriovenous malformation, other site; K44.9 Diaphragmatic hernia without obstruction or gangrene; Z88.0 Allergy status to penicillin
CPT/HCPCS: 36415; 85025; J2001; J2704; J3010

== ENCOUNTER 2018-08-28 19:44 | Emergency (ER) | payer MEDICARE, OTHER ==
[~2018-08-28 19:44] MED LIST: Iopamidol 370 76% 100 ML VIAL ONE
[2018-08-28] MEDS ORDERED: Morphine 4 MG/ML Carpuject ONE (20:17)
[2018-08-28 20:26] LABS: #Basophils 0.1 thou/uL (0.0-0.2); #Eosinphils 0.2 thou/uL (0.0-0.7); #Lymphocytes 2.4 thou/uL (1.20-3.40); #Monocytes 0.5 thou/uL (0.11-0.59); #Neutrophils 4.4 thou/uL (1.40-6.50); %Basophils 1.7 % (0.0-1.0); %Eosinophils 2.4 % (0.0-10.0); %Lymphocytes 31.1 % (21.0-51.0); %Monocytes 6.4 % (0.0-10.0); %Neutrophils 58.4 % (42.0-75.0); Hemoglobin 14.5 g/dL (14.0-18.0); Mean Corpuscular HGB CONC 34.6 g/dL (32.0-36.0); Mean Corpuscular Hemoglobin 30.1 pg (27.0-31.0); Mean Corpuscular Volume 87.2 fL (78.0-98.0); Mean Platelet Volume 10.8 fL (7.4-10.4); Platelet Count 166 thou/uL (130-400); RBC Distribution Width 12.3 % (11.5-14.5); Red Blood Cell (RBC) Count 4.82 mill/uL (4.70-6.10); White Blood Cell (WBC) Count 7.6 thou/uL (4.8-10.8)
[2018-08-28 20:41] LABS: ALT (SGPT) 22 U/L (8-55); AST (SGOT) 21 U/L (5-34); Alkaline Phosphatase 58 U/L (40-150); Anion Gap 11 mmol/L (10-20); BUN (Urea Nitrogen) 16 mg/dL (8.4-25.7); Bilirubin, Total 0.8 mg/dL (0.2-1.2); Calc. Creatinine Clearance 0 mL/min (70-130); Calcium 9.3 mg/dL (7.8-10.44); Carbon Dioxide 25 mmol/L (23-31); Chloride 107 mmol/L (98-107); Estimated GFR-MDRD 77; Globulin 2.4 g/dL (2.4-3.5); Glucose 162 mg/dL (83-110); Potassium 3.9 mmol/L (3.5-5.1); Protein, Total 6.4 g/dL (5.8-8.1); Sodium 139 mmol/L (136-145)
--- NOTE | 2018-08-28 21:28 | CT ---
ABDOMEN CT WITH CONTRAST: PELVIS CT WITH CONTRAST: HISTORY: Right lower quadrant pain. COMPARISON: None. FINDINGS: ABDOMEN: No consolidation or mass in the lung bases. The heart is enlarged. No significant pericar dial fluid. The descending thoracic aorta and abdominal aorta have a normal caliber. No periaortic fat stranding. Intrahepatic and extrahepatic portal veins are patent. Unremarkable gallbladder. The liver, spleen, pancreas, and adrenal glands have appropriate enhancement. No gastrohepatic, retrocrural, or periportal lymphadenopathy. No mesenteric mass, lymphadenopathy, free air, or free fluid. Limited evaluation of alimentary canal due to lack of oral contrast. No evidence of bowel obstructio n. Limited evaluation of the gastric mucosa. The ileocecal junction is normal. Scattered fecal mat erial with an occasional diverticulum. No evidence of colonic obstruction. No evidence of diverticu litis. A normal caliber appendix emanates from the cecal apex. There is symmetric enhancement of the kidneys. Nonobstructing calcification in the right kidney measu ring 5 mm. Exophytic cyst emanating from the left kidney measuring 1.2 x 1.2 cm. PELVIS: No mass, lymphadenopathy, free air, or free fluid. The urinary bladder is unremarkable. Bi lateral inguinal hernia containing mesenteric fat. Mild prosthetic hypertrophy. No lytic or blastic lesions in the osseous structures. There appear to be six lumbar type vertebral bodies. Hemangioma at the right aspect of L3. Vacuum disk phenomenon at L5-L6. IMPRESSION: 1. Nonobstructing 5 mm calculus in the lower pole of the right kidney. Right parapelvic cysts are n oted. Bilaterally, no obstructive uropathy. Subcentimeter hypodensities in the right kidney are too small to characterize. There is an exophytic hypodensity in the left kidney, measuring 1.2 x 1.2 cm . Exophytic cyst is favored. 2. Normal caliber appendix. 3. Diverticulosis without evidence of diverticulitis. POS: [facility]
[2018-08-28 21:29] LABS: Bilirubin Negative (Negative); Blood, Urine Trace (Negative); Clarity Clear (Clear); Glucose, Urine (Dipstick) Negative (Negative); Leukocyte Negative (Negative); Nitrite Negative (Negative); Protein, Urine (Dipstick) Negative (Neg-Trace); Specific Gravity, Urine 1.015 (1.005-1.030)
[2018-08-28 21:32] LABS: RBC/HPF 0-3 HPF (0-3); Sperm/HPF Rare HPF (None Seen); Squamous Epithelial 0-3 HPF (0-3); WBC/HPF 0-3 HPF (0-3)
== END 2018-08-28 21:51 | disposition home or self-care (01) ==
LOC: SCSER 19:44
DX: R10.31 Right lower quadrant pain (principal); I48.91 Unspecified atrial fibrillation; K21.9 Gastro-esophageal reflux disease without esophagitis; R73.03 Prediabetes; E78.5 Hyperlipidemia, unspecified; I10 Essential (primary) hypertension; Z79.84 Long term (current) use of oral hypoglycemic drugs; Z79.82 Long term (current) use of aspirin; Z79.899 Other long term (current) drug therapy
CPT/HCPCS: 74177; 80053; 81003; 81015; 83605; 85025; 93005; 96374; J2270

== ENCOUNTER 2018-09-04 08:15 | Day surgery (SDC) | payer MEDICARE ==
[2018-09-01 10:29] VITALS: BMI 30.7
[2018-09-04] MEDS ORDERED: PROPOFOL 200 MG/20 ML VIAL ONE (10:49)
[2018-09-04] MEDS ORDERED: PROPOFOL 20 ML ONE (10:52)
--- NOTE | 2018-09-04 18:18 | ECHO ---
TRANSESOPHAGEAL ECHOCARDIOGRAM: Date: 09/04/18 INDICATION FOR PROCEDURE: This is a 78-year-old patient with atrial fibrillation who was scheduled to undergo a Watchman device approximately a month ago and was found to have a thrombus in the left atrial appendage. He was star adi on Eliquis for anticoagulation and was advised to undergo a echocardiogram to see whether or not the thrombus was still present, and if so, he would have to wait and continue oral anticoagulation pr ior to having a Watchman device placed. TECHNIQUE: The patient was taken to the recovery area where he underwent short acting propofol anesthesia. The t ransesophageal probe was easily passed down the distal esophagus. FINDINGS: Small thrombus in the left atrial appendage, in the very proximal portion of this, extending down int o the appendage. Severe mitral valve regurgitation. Moderate tricuspid valve regurgitation. Severe le ft atrial dilatation, measured at 5.7 cm. The flow in the left atrial appendage was less than 1 meter per second. Ejection fraction was about 50%. There were no complications or difficulties encountere d. IMPRESSION: Persistent thrombus in the left atrial appendage. The plan will be to continue oral anticoagulation.
--- NOTE | 2018-09-04 21:23 | DIS ---
He was seen in the outpatient facility today to undergo a planned transesophageal echocardiogram to r ule out evidence of left atrial appendage thrombus. He was previously scheduled to undergo Watchman device and was noted to have thrombus in left atrial appendage and then was advised to undergo oral a nticoagulation then to do a transesophageal echocardiogram again after 1 month of anticoagulation ___ __ whether or not he had a continued thrombus of the left atrial appendage. His other diagnose include chronic atrial fibrillation, hypertension, diabetes, and dyslipidemia. He also is status post bypass surgery and has history of coronary artery disease, obesity. DISCHARGE DIAGNOSES: Include chronic atrial fibrillation, hypertension, diabetes, and dyslipidemia. He also is status post bypass surgery and has history of coronary artery disease, obesity. Procedures in outpatient facility included a transesophageal echocardiogram. His followup will be wi mason castaneda in the next 1-2 months in the office. He will continue his routine followups with Electrophysi ologist. He will need to most likely undergo a repeat transechocardiogram within the next 1-2 months after being on further oral anticoagulation. We will discuss these images with the electrophysiolog ist. DISCHARGE MEDICATIONS: The same as his admission medications. They include Eliquis 5 mg b.i.d., aml odipine 5 mg daily, aspirin 81 mg a day, atenolol 25 mg tablet half a tablet b.i.d., atorvastatin 80 mg a day, Caltrate 600 mg 1 daily, ferrous sulfate 325 mg daily, fish oil, hydrochlorothiazide 25 mg daily, Inulin Fiber Choice 1 gram tablets 2 a day, losartan 50 mg a day, metformin 500 mg daily, mary mins, nitroglycerin as needed p.r.n., omeprazole 40 mg daily. PROCEDURES IN HOSPITAL: Transesophageal echocardiogram. HOSPITAL COURSE: Transesophageal echocardiogram shows evidence of continued thrombus in left atrial appendage. There were no complications or difficulties encountered during the procedure. He did obt ain a short-acting propofol. When the patient is fully awake and he is able to swallow and drink wit hout any problems, then he will be discharged home and will follow up with electric meter tester.
== END 2018-09-04 12:10 | disposition home or self-care (01) ==
LOC: CCL 08:15
PROVIDERS: ATTEND Internal Medicine Cardiovascular Disease
DX: I51.3 Intracardiac thrombosis, not elsewhere classified (principal); I48.2 Chronic atrial fibrillation; I10 Essential (primary) hypertension; E11.9 Type 2 diabetes mellitus without complications; E78.5 Hyperlipidemia, unspecified; I25.10 Atherosclerotic heart disease of native coronary artery without angina pectoris; E66.9 Obesity, unspecified; Z95.1 Presence of aortocoronary bypass graft; Z79.01 Long term (current) use of anticoagulants; Z79.82 Long term (current) use of aspirin; Z79.899 Other long term (current) drug therapy; Z79.4 Long term (current) use of insulin
CPT/HCPCS: 93312; J2704

== ENCOUNTER 2019-02-20 07:09 | Outpatient (CLI) | payer MEDICARE ==
[2019-02-20] MEDS ORDERED: Iopamidol 370 76% 100 ML VIAL ONE (09:00)
--- NOTE | 2019-02-20 10:01 | CT ---
CT OF THE ABDOMEN AND PELVIS WITH AND WITHOUT IV CONTRAST: Provided Clinical History: Gross hematuria. FINDINGS: Comparison is made with study dated 08-28-18. The visualized lung bases are free of significant opacity. Stable 3-4 mm nonobstructing right renal calculus. Subtle 1-2 mm nonobstructing left renal calculus. Stable exophytic cyst arising from the anterior margin of the upper pole of the left kidney. Stable s maller hypodensities too small to definitely characterize but likely also reflecting cysts involving both kidneys. No evidence for solid renal mass. No evidence for collecting system filling defect. The opacified ureters and urinary bladder demonstrate no evidence for filling defect. No urinary tract c alculi are evident. The liver, spleen, pancreas, kidneys, and adrenal glands demonstrate no significant abnormality. Stab le left hepatic lobe hypodensities compatible with tiny cysts. No bowel dilatation, inflammatory fat stranding, free fluid or lymph node enlargement apparent. Vascu lar calcifications are seen. Nonspecific heterogeneity to the prostate gland. The osseous structures demonstrate no concerning osteoblastic or osteolytic lesions. IMPRESSION: Nonobstructing bilateral renal calculi. POS: [facility]
== END 2019-02-20 07:10 | disposition home or self-care (01) ==
LOC: SCSCT 07:09
PROVIDERS: ATTEND Urology
DX: N20.0 Calculus of kidney (principal); R31.0 Gross hematuria; N40.1 Benign prostatic hyperplasia with lower urinary tract symptoms
CPT/HCPCS: 74178; 82565; Q9967

== ENCOUNTER 2019-03-15 06:08 | Day surgery (SDC) | payer MEDICARE ==
[2019-03-14 12:18] VITALS: BMI 32.8
[2019-03-15] MEDS ORDERED: Ketamine 50 MG/ML (10ML VIAL) ONE (07:14)
[2019-03-15] MEDS ORDERED: PROPOFOL 20 ML ONE (07:14)
[2019-03-15] MEDS ORDERED: PROPOFOL 200 MG/20 ML VIAL ONE (10:24)
--- NOTE | 2019-03-16 10:26 | ECHO ---
CARDIOLOGY PROCEDURE NOTE: Date: 03/15/19 PROCEDURE: Transesophageal echocardiogram. INDICATION FOR PROCEDURE: 78-year-old gentleman with history of atrial fibrillation. Has undergone a transesophageal echocardio gram in the past that showed evidence of left atrial appendage thrombus. He was been advised to under go a Watchman procedure. A transesophageal echocardiogram was suggested to be performed prior to plac ing the device in the left atrial appendage. DESCRIPTION OF PROCEDURE: The patient was taken to the recovery area, where he underwent the procedure today without difficulti es or complications. He was given short-acting propofol for the procedure. The transesophageal probe was easily passed down the distal esophagus and into the gastric area to get a better visualization o f the left atrial appendage. The patient tolerated the procedure well. IMPRESSION: 1. Large thrombus noted in the left atrial appendage, 2.3 x 1.6 cm in diameter. It does not appear t o be mobile. It is a fixed thrombus along the side of the wall of the left atrial appendage, not in t he apex. 2. Tricuspid aortic valve with mild sclerosis, with trivial aortic valve regurgitation. 3. Moderate mitral valve regurgitation. 4. Mild tricuspid valve regurgitation. 5. Well-preserved and normal-appearing left ventricular systolic function. 6. No evidence of atrial septal defect or patent foramen ovale.
--- NOTE | 2019-03-16 10:39 | DIS ---
ADMITTING DIAGNOSIS: The patient was seen in the outpatient facility to undergo a transesophageal echocardiogram to rule o ut evidence of left atrial appendage thrombus. He has a history of chronic atrial fibrillation. He jimenez s been on Eliquis to try to dissolve the thrombus in the left atrial appendage. His other diagnoses i nclude coronary artery disease, hiatal hernia, and hypertension. Atrial fibrillation has been present since May 2017. He has undergone ablations x2. DISCHARGE DIAGNOSIS: The patient was seen in the outpatient facility to undergo a transesophageal echocardiogram to rule o ut evidence of left atrial appendage thrombus. He has a history of chronic atrial fibrillation. He jimenez s been on Eliquis to try to dissolve the thrombus in the left atrial appendage. His other diagnoses i nclude coronary artery disease, hiatal hernia, and hypertension. Atrial fibrillation has been present since May 2017. He has undergone ablations x2. PROCEDURES IN HOSPITAL: Transesophageal echocardiogram. SUMMARY: Discharge medications are the same as admission medications, which include [place] 3 fish oil, calcium carbonate tablets, Centrum Silver vitamins, Eliquis 5 mg bid, aspirin 81 mg q.d., Lipitor 80 mg q.d., Cozaar 50 mg q.d., Omeprazole 40 mg q.d., amlodipine 5 mg q.d., nitroglycerin sublingual tablets prn chest discomfort, metformin 500 mg q.d., atenolol 25 mg q.d., finasteride 5 mg q.d., iron ER 325 mg q.d.. His follow-up will be with me in the next 1-2 months. He will continue his routine follow-up with the agent producer as indicated. We will send them a report of the procedure. If he remains stable, he will be discharged to home in the next 1-2 hours when he is awake and alert. HOSPITAL COURSE: As noted, this is a very pleasant 78-year-old gentleman with history of atrial fibrillation. He has h istory of hematuria in the past. We were attempting to determine whether or not the patient would be a candidate for a Watchman device. On his last evaluation, he was found to have a thrombus in the lef t atrial appendage. He was placed on Eliquis now for almost a year. He had had a previous thrombus in the left atrial appendage. He again underwent transesophageal echocardiogram to rule out evidence of left atrial appendage thrombus to determine whether or not he could undergo the Watchman procedure i f the thrombus had been dissolved. However, on the procedure today, it was noted that the thrombus is still present. Will send the results of the study to the agent producer. At this time, it would appear that he will need to continue on Eliquis and continue with rate control. Otherwise, the patie nt did fine, and when he is stable, he will be discharged to home.
== END 2019-03-15 09:38 | disposition home or self-care (01) ==
LOC: CCL 06:08
PROVIDERS: ATTEND Internal Medicine Cardiovascular Disease
PROC: B24BZZ4 Ultrasonography of Heart with Aorta, Transesophageal (ICD-10-PCS; principal; 2019-03-15)
DX: I23.6 Thrombosis of atrium, auricular appendage, and ventricle as current complications following acute myocardial infarction (principal); I48.2 Chronic atrial fibrillation; I07.8 Other rheumatic tricuspid valve diseases; I25.10 Atherosclerotic heart disease of native coronary artery without angina pectoris; N40.0 Benign prostatic hyperplasia without lower urinary tract symptoms; I10 Essential (primary) hypertension; I45.10 Unspecified right bundle-branch block; E78.00 Pure hypercholesterolemia, unspecified; E11.9 Type 2 diabetes mellitus without complications; E78.2 Mixed hyperlipidemia; I48.0 Paroxysmal atrial fibrillation; Z87.891 Personal history of nicotine dependence; Z79.01 Long term (current) use of anticoagulants; Z79.82 Long term (current) use of aspirin; Z79.84 Long term (current) use of oral hypoglycemic drugs; Z79.899 Other long term (current) drug therapy; Z88.0 Allergy status to penicillin; Z95.1 Presence of aortocoronary bypass graft; Z95.818 Presence of other cardiac implants and grafts
CPT/HCPCS: 93312; J2704

== ENCOUNTER 2022-06-27 19:00 | Outpatient (CLI) | payer MEDICARE | END 2022-06-27 19:01 | disposition home or self-care (01) | LOC: SLEEPLAB 19:00 | PROVIDERS: ATTEND Family Medicine | DX: G47.33 Obstructive sleep apnea (adult) (pediatric) (principal); R53.83 Other fatigue; E66.9 Obesity, unspecified; K21.9 Gastro-esophageal reflux disease without esophagitis; R06.83 Snoring; Z68.35 Body mass index [BMI] 35.0-35.9, adult | CPT/HCPCS: 95811 ==

== ENCOUNTER 2023-01-06 11:00 | Outpatient (CLI) | payer MEDICARE ==
[2023-01-06 12:53] LABS: Mean Corpuscular HGB CONC 29.3 g/dL (32.0-36.0); Mean Corpuscular Hemoglobin 22.2 pg (27.0-33.0); Mean Corpuscular Volume 75.6 fl (81.2-95.1); Mean Platelet Volume 11.9 fl (7.4-10.4); Platelet Count 229 10x3/uL (150-450); RBC Distribution Width 15.8 % (11.5-14.5); Red Blood Cell (RBC) Count 3.61 10x6/uL (4.32-5.72)
[2023-01-06 13:14] LABS: INR-International Normal Ratio 1.1; PTT 25.8 sec (22.0-33.0); Prothrombin Time 11.5 sec (9.5-12.1)
[2023-01-06 13:20] LABS: MDiff Complete? YES
[2023-01-06 13:25] LABS: ALT (SGPT) 15 U/L (8-55); AST (SGOT) 15 U/L (5-34); Albumin 4.2 g/dL (3.4-4.8); Alkaline Phosphatase 45 U/L (40-110); Anion Gap 13 mmol/L (10-20); BUN (Urea Nitrogen) 16 mg/dL (8.4-25.7); Bilirubin, Total 1.1 mg/dL (0.2-1.2); Calc. Creatinine Clearance 0 mL/min (70-130); Calcium 9.1 mg/dL (7.8-10.44); Carbon Dioxide 24 mmol/L (23-31); Chloride 105 mmol/L (98-107); Eosinophils 2 % (0-10); Estimated GFR 86; Globulin 2.1 g/dL (2.4-3.5); Glucose 111 mg/dL (83-110); Lymphocytes 22 % (21-51); Monocytes 8 % (0-10); Neutrophil 67 % (42-75); Potassium 3.9 mmol/L (3.5-5.1); Protein, Total 6.3 g/dL (5.8-8.1); Reactive Lymphocytes 1 % (0-10); Sodium 138 mmol/L (136-145)
[2023-01-06 13:29] LABS: Microcytosis SLIGHT = 6-15 cells (100X) (0-5/hpf)
[2023-01-06 13:30] LABS: Hypochromia MODERATE=16-30 cells (100X) (0-5/hpf)
[2023-01-06 13:31] LABS: Giant Platelets SLIGHT
== END 2023-01-06 11:01 | disposition home or self-care (01) ==
LOC: LABBT 11:00
PROVIDERS: ATTEND Internal Medicine Cardiovascular Disease
DX: Z01.818 Encounter for other preprocedural examination (principal); I25.10 Atherosclerotic heart disease of native coronary artery without angina pectoris
CPT/HCPCS: 80053; 85025; 85610; 85730; 93005; 93010

== ENCOUNTER 2023-01-07 09:55 | Day surgery (SDC) | payer MEDICARE ==
[2023-01-06 09:22] VITALS: BMI 33.7
[2023-01-07 11:08] LABS: Cardiac Risk 2.2 (Less than 4.5)
[2023-01-07] MEDS ORDERED: Adenosine 6 MG/2 ML VIAL ONE (11:44)
[2023-01-07] MEDS ORDERED: Heparin 10,000 UNITS/ 10 ML VIAL ONE (11:44)
[2023-01-07] MEDS ORDERED: Lidocaine 1% (PF) 30 ML VIAL ONE (11:44)
[2023-01-07] MEDS ORDERED: Nitroglycerin 100MG/250ML BOT 0 ML ONE (11:44)
[2023-01-07] MEDS ORDERED: FENTANYL 50 MCG/ML 1 ML VIAL ONE (11:48)
[2023-01-07] MEDS ORDERED: Midazolam HCl 2 mg/2 ml Vial ONE (11:48)
== END 2023-01-07 17:05 | disposition home or self-care (01) ==
LOC: CCL 09:55
PROVIDERS: ATTEND Internal Medicine Cardiovascular Disease
PROC: 4A023N7 Measurement of Cardiac Sampling and Pressure, Left Heart, Percutaneous Approach (ICD-10-PCS; principal; 2023-01-07)
PROC: B2111ZZ Fluoroscopy of Multiple Coronary Arteries using Low Osmolar Contrast (ICD-10-PCS; 2023-01-07)
PROC: B2181ZZ Fluoroscopy of Left Internal Mammary Bypass Graft using Low Osmolar Contrast (ICD-10-PCS; 2023-01-07)
PROC: B2121ZZ Fluoroscopy of Single Coronary Artery Bypass Graft using Low Osmolar Contrast (ICD-10-PCS; 2023-01-07)
DX: I25.10 Atherosclerotic heart disease of native coronary artery without angina pectoris (principal); I25.82 Chronic total occlusion of coronary artery; T82.857A Stenosis of other cardiac prosthetic devices, implants and grafts, initial encounter; E11.9 Type 2 diabetes mellitus without complications; I34.0 Nonrheumatic mitral (valve) insufficiency; I10 Essential (primary) hypertension; I48.11 Longstanding persistent atrial fibrillation; E78.2 Mixed hyperlipidemia; G47.33 Obstructive sleep apnea (adult) (pediatric); Z87.891 Personal history of nicotine dependence; Z79.01 Long term (current) use of anticoagulants; Z79.84 Long term (current) use of oral hypoglycemic drugs; Z79.899 Other long term (current) drug therapy; Z88.0 Allergy status to penicillin; Z95.1 Presence of aortocoronary bypass graft; Y71.3 Surgical instruments, materials and cardiovascular devices (including sutures) associated with adverse incidents
CPT/HCPCS: 36415; 80061; 93459; 99152; C1887; J0153; J1644; J2001; J2250; J3010

== ENCOUNTER 2023-01-14 11:32 | Observation (INO) | payer MEDICARE ==
[2023-01-14 15:25] VITALS: BMI 33.8
[2023-01-14] MEDS: Fish Oil 1,000 MG CAP PO SCH (20:49)
[2023-01-14] MEDS: Atenolol 25 MG TAB PO SCH ×2 (20:49→20:56)
[2023-01-14] MEDS ORDERED: Methylcellulose 500 MG TAB PO SCH (21:00)
[2023-01-14] MEDS ORDERED: Atorvastatin Calcium 40 MG TAB PO SCH (21:00)
[2023-01-14] MEDS ORDERED: Tamsulosin HCl 0.4 MG CAP PO SCH (21:00)
[2023-01-14] MEDS ORDERED: Calcium Carbonate 600 MG TAB PO SCH (21:00)
[2023-01-14] MEDS ORDERED: Finasteride 5 MG TAB PO SCH (21:00)
[2023-01-14] MEDS ORDERED: Losartan 25 MG TAB PO SCH (21:00)
[2023-01-14] MEDS ORDERED: Acetaminophen 325 MG TAB PO PRN (21:37)
[2023-01-15 05:08] LABS: #Eosinphils 0.3 thou/uL (0.0-0.7); #Lymphocytes 1.7 thou/uL (1.20-3.40); #Monocytes 0.8 thou/uL (0.11-0.59); %Basophils 0.5 % (0.0-1.0); %Eosinophils 4.7 % (0.0-10.0); %Lymphocytes 24.6 % (21.0-51.0); %Monocytes 12.1 % (0.0-10.0); %Neutrophils 58.2 % (42.0-75.0); Hemoglobin 8.3 g/dL (14.0-18.0); Mean Corpuscular HGB CONC 31.1 g/dL (32.0-36.0); Mean Corpuscular Hemoglobin 23.4 pg (27.0-31.0); Mean Corpuscular Volume 75.4 fl (78.0-98.0); Mean Platelet Volume 10.5 fL (7.4-10.4); Platelet Count 179 10x3/uL (130-400); RBC Distribution Width 14.9 % (11.5-14.5); Red Blood Cell (RBC) Count 3.55 mill/uL (4.70-6.10); White Blood Cell (WBC) Count 6.8 10x3/uL (4.8-10.8)
[2023-01-15 05:30] LABS: Anion Gap 13 mmol/L (10-20); BUN (Urea Nitrogen) 12 mg/dL (8.4-25.7); Calc. Creatinine Clearance 108 mL/min (70-130); Calcium 9.6 mg/dL (7.8-10.44); Carbon Dioxide 24 mmol/L (23-31); Chloride 105 mmol/L (98-107); Estimated GFR 90; Glucose 106 mg/dL (83-110); Iron 25 ug/dL (65-175); Iron Binding Capacity, Total 434 mcg/dL (261-462); Potassium 3.9 mmol/L (3.5-5.1); Sodium 138 mmol/L (136-145)
[2023-01-15] MEDS: Fish Oil 1,000 MG CAP PO SCH (07:53)
[2023-01-15] MEDS ORDERED: Hydrochlorothiazide 25 MG TAB PO SCH (09:00)
[2023-01-15] MEDS ORDERED: Multivit, Therapeutic 1 TAB PO SCH (09:00)
[2023-01-15] MEDS ORDERED: Atenolol 25 MG TAB PO SCH (09:00)
[2023-01-15] MEDS ORDERED: Amlodipine 5 MG TAB PO SCH (09:00)
[2023-01-15] MEDS ORDERED: Ketamine 50 MG/ML (10ML VIAL) ONE (09:13)
[2023-01-15] MEDS ORDERED: PROPOFOL 200 MG/20 ML VIAL ONE (09:40)
[2023-01-15] MEDS ORDERED: Lidocaine 1% PF 5 ML VIAL ONE (09:40)
[2023-01-15] MEDS ORDERED: Iron, Sodium Ferric Gluconate 250 MG in Sodium Chloride 0.9% 250 ML 250 ML IVPB SCH (14:00)
[2023-01-15] MEDS ORDERED: Iron Sucrose Complex 200 MG in Sodium Chloride 0.9% 100 ML IVPB SCH (14:00)
[2023-01-15 15:41] VITALS: BP 144/66; TEMP 97.7
[2023-01-15] MEDS ORDERED: Ferrous Sulfate 325 MG TAB PO SCH (17:00)
== END 2023-01-15 18:45 | disposition home or self-care (01) ==
LOC: INTOOBSV 15:11 → 2NO 15:11
PROVIDERS: ADMIT Family Medicine; ATTEND Internal Medicine
PROC: 0DB68ZZ Excision of Stomach, Via Natural or Artificial Opening Endoscopic (ICD-10-PCS; principal; 2023-01-15)
PROC: 0W3P8ZZ Control Bleeding in Gastrointestinal Tract, Via Natural or Artificial Opening Endoscopic (ICD-10-PCS; 2023-01-15)
DX: K31.7 Polyp of stomach and duodenum (principal); K31.819 Angiodysplasia of stomach and duodenum without bleeding; K22.70 Barrett's esophagus without dysplasia; K44.9 Diaphragmatic hernia without obstruction or gangrene; D50.0 Iron deficiency anemia secondary to blood loss (chronic); I25.10 Atherosclerotic heart disease of native coronary artery without angina pectoris; E11.9 Type 2 diabetes mellitus without complications; K21.9 Gastro-esophageal reflux disease without esophagitis; E78.5 Hyperlipidemia, unspecified; I48.91 Unspecified atrial fibrillation; Z87.891 Personal history of nicotine dependence; Z79.01 Long term (current) use of anticoagulants; Z79.84 Long term (current) use of oral hypoglycemic drugs; Z79.899 Other long term (current) drug therapy; Z88.0 Allergy status to penicillin; Z95.1 Presence of aortocoronary bypass graft; Z95.5 Presence of coronary angioplasty implant and graft; Z20.822 Contact with and (suspected) exposure to COVID-19
CPT/HCPCS: 44364; 44366; 80048; 82728; 82962; 83540; 83550; 85025; 86850; 86900; 86901; U0003; U0005; 36415; 36416; 96374; G0378; G0379; J2704; J2916; J7050

== ENCOUNTER 2023-01-31 12:21 | Outpatient (CLI) | payer MEDICARE | END 2023-01-31 12:22 | disposition home or self-care (01) | LOC: SCSCT 12:21 | PROVIDERS: ATTEND Urology | DX: N20.0 Calculus of kidney (principal); N28.1 Cyst of kidney, acquired; K57.30 Diverticulosis of large intestine without perforation or abscess without bleeding; K42.9 Umbilical hernia without obstruction or gangrene | CPT/HCPCS: 74176 ==

== ENCOUNTER 2025-01-18 20:46 | Emergency (ER) | payer MEDICARE ==
[2025-01-18 21:05] LABS: #Basophils 0.04 10x3/uL (0.0-0.2); %Basophils 0.7 % (0.0-1.0); %Eosinophils 3.8 % (0.0-10.0); %Monocytes 14.5 % (0.0-10.0); %Neutrophils 45.6 % (42.0-75.0); Hematocrit 40.8 % (42.0-52.0); Hemoglobin 13.4 g/dL (14.0-18.0); Mean Corpuscular HGB CONC 32.8 g/dL (32.0-36.0); Mean Corpuscular Hemoglobin 30.9 pg (27.0-31.0); Mean Corpuscular Volume 94.2 fL (78.0-98.0); Mean Platelet Volume 10.7 fL (7.4-10.4); Platelet Count 172 10x3/uL (130-400); RBC Distribution Width 12.9 % (11.5-14.5); Red Blood Cell (RBC) Count 4.33 mill/uL (4.70-6.10)
[2025-01-18 21:26] LABS: ALT (SGPT) 14 U/L (Less than 45); AST (SGOT) 25 U/L (11-34); Albumin 4.2 g/dL (3.1-4.5); Alkaline Phosphatase 54 U/L (40-110); Anion Gap 13 mmol/L (10-20); BUN (Urea Nitrogen) 11 mg/dL (8.4-25.7); Bilirubin, Total 0.7 mg/dL (0.3-1.2); Calc. Creatinine Clearance 0 mL/min (70-130); Calcium 9.5 mg/dL (7.8-10.44); Carbon Dioxide 25 mmol/L (23-31); Chloride 107 mmol/L (98-107); Estimated GFR 87; Glucose 94 mg/dL (83-110); Potassium 3.9 mmol/L (3.5-5.1); Protein, Total 7.2 g/dL (5.8-8.1); Sodium 141 mmol/L (136-145)
[2025-01-18 21:28] LABS: Troponin I Less than 0.010 ng/mL (< 0.028)
== END 2025-01-18 22:00 | disposition home or self-care (01) ==
LOC: ERS 20:46
DX: I11.0 Hypertensive heart disease with heart failure (principal); I50.9 Heart failure, unspecified; I25.10 Atherosclerotic heart disease of native coronary artery without angina pectoris; E11.9 Type 2 diabetes mellitus without complications; I48.91 Unspecified atrial fibrillation; E78.5 Hyperlipidemia, unspecified; Z87.891 Personal history of nicotine dependence
CPT/HCPCS: 71045; 80053; 83880; 84484; 85025; 93005

== ENCOUNTER 2025-06-27 06:27 | Emergency (ER) | payer MEDICARE ==
[2025-06-27 06:49] LABS: #Basophils 0.03 10x3/uL (0.0-0.2); #Eosinophils 0.14 10x3/uL (0.0-0.7); #Monocytes 0.77 10x3/uL (0.11-0.59); #Neutrophils 4.96 10x3/uL (1.40-6.50); %Basophils 0.4 % (0.0-1.0); %Eosinophils 1.9 % (0.0-10.0); %Lymphocytes 20.5 % (21.0-51.0); %Monocytes 10.3 % (0.0-10.0); %Neutrophils 66.6 % (42.0-75.0); Hematocrit 36.7 % (42.0-52.0); Hemoglobin 11.6 g/dL (14.0-18.0); Mean Corpuscular Hemoglobin 28.9 pg (27.0-31.0); Mean Corpuscular Volume 91.3 fL (78.0-98.0); Platelet Count 173 10x3/uL (130-400); Red Blood Cell (RBC) Count 4.02 mill/uL (4.70-6.10); White Blood Cell (WBC) Count 7.45 10x3/uL (4.8-10.8)
[2025-06-27 07:11] LABS: ALT (SGPT) 16 U/L (Less than 45); AST (SGOT) 28 U/L (11-34); Albumin 4.1 g/dL (3.1-4.5); Alkaline Phosphatase 46 U/L (40-110); Anion Gap 13 mmol/L (10-20); BUN (Urea Nitrogen) 15 mg/dL (8.4-25.7); Bilirubin, Total 0.6 mg/dL (0.3-1.2); Calc. Creatinine Clearance 0 mL/min (70-130); Calcium 9.2 mg/dL (7.8-10.44); Carbon Dioxide 22 mmol/L (23-31); Chloride 106 mmol/L (98-107); Globulin 2.6 g/dL (2.4-3.5); Glucose 158 mg/dL (83-110); Lipase 28 U/L (8-78); Potassium 3.8 mmol/L (3.5-5.1); Sodium 137 mmol/L (136-145)
[2025-06-27 08:19] LABS: Bacteria/HPF None Seen HPF (None Seen); CAUTI Indications for Culture Dysuria,urgency,freq; Glucose, Urine (Dipstick) Normal (Negative); Leukocyte Negative Leu/uL (Negative); Protein, Urine (Dipstick) 20 mg/dL (Neg-Trace); RBC/HPF Greater than 50 HPF (0-3); Specific Gravity, Urine 1.024 (1.002-1.036); WBC/HPF 0-3 HPF (0-3); Yeast-Budding 1+ HPF (None Seen)
[2025-06-27 08:22] LABS: Urine Culture Reflex No No
[2025-06-27] MEDS ORDERED: Fluconazole 100 MG TAB ONE (09:02)
[2025-06-27] MEDS ORDERED: Ketorolac Tromethamine 30 MG (1 mL) VIAL ONE (09:02)
== END 2025-06-27 09:22 | disposition home or self-care (01) ==
LOC: ERS 06:27
DX: N20.1 Calculus of ureter (principal); I48.91 Unspecified atrial fibrillation; E11.9 Type 2 diabetes mellitus without complications; Z87.891 Personal history of nicotine dependence
CPT/HCPCS: 36415; 74177; 80053; 81001; 83690; 85025; 96374; 96375; 96376; J1885; J2270

== ENCOUNTER 2025-07-08 13:02 | Outpatient (CLI) | payer MEDICARE ==
[2025-07-08 15:22] LABS: #Basophils 0.03 10x3/uL (0.0-0.2); #Eosinophils 0.08 10x3/uL (0.0-0.7); #Monocytes 0.81 10x3/uL (0.11-0.59); #Neutrophils 4.33 10x3/uL (1.40-6.50); %Basophils 0.5 % (0.0-1.0); %Eosinophils 1.2 % (0.0-10.0); %Lymphocytes 19.2 % (21.0-51.0); %Monocytes 12.3 % (0.0-10.0); %Neutrophils 65.9 % (42.0-75.0); Hematocrit 26.6 % (42.0-52.0); Hemoglobin 8.2 g/dL (14.0-18.0); Mean Corpuscular Hemoglobin 28.2 pg (27.0-31.0); Mean Corpuscular Volume 91.4 fL (78.0-98.0); Platelet Count 193 10x3/uL (130-400); Red Blood Cell (RBC) Count 2.91 mill/uL (4.70-6.10); White Blood Cell (WBC) Count 6.57 10x3/uL (4.8-10.8)
[2025-07-08 15:58] LABS: INR-International Normal Ratio 1.3; Prothrombin Time 16.3 sec (12.0-14.7)
[2025-07-08 15:59] LABS: PTT 33.8 sec (22.9-36.1)
[2025-07-08 16:14] LABS: Anion Gap 13 mmol/L (10-20); BUN (Urea Nitrogen) 20 mg/dL (8.4-25.7); Calc. Creatinine Clearance 0 mL/min (70-130); Calcium 8.5 mg/dL (7.8-10.44); Carbon Dioxide 24 mmol/L (23-31); Chloride 104 mmol/L (98-107); Glucose 104 mg/dL (83-110); Potassium 4.1 mmol/L (3.5-5.1); Sodium 137 mmol/L (136-145)
== END 2025-07-08 13:03 | disposition home or self-care (01) ==
LOC: LABBT 13:02
PROVIDERS: ATTEND Urology
DX: Z01.818 Encounter for other preprocedural examination (principal); N20.0 Calculus of kidney; Z87.441 Personal history of nephrotic syndrome
CPT/HCPCS: 80048; 85025; 85610; 85730; 93005; 93010

== ENCOUNTER 2025-07-17 07:24 | Inpatient (IN) | payer MEDICARE ==
[2025-07-08 13:45] VITALS: BMI 35.0
[2025-07-17] MEDS ORDERED: Rocuronium Bromide 10 MG/ML (10ML VIAL) ONE ×2 (07:52→15:01)
[2025-07-17] MEDS ORDERED: PROPOFOL 0 ML ONE (07:52)
[2025-07-17 08:26] LABS: #Basophils 0.04 10x3/uL (0.0-0.2); #Eosinophils 0.06 10x3/uL (0.0-0.7); #Monocytes 0.96 10x3/uL (0.11-0.59); #Neutrophils 3.88 10x3/uL (1.40-6.50); %Basophils 0.7 % (0.0-1.0); %Eosinophils 1.0 % (0.0-10.0); %Lymphocytes 19.2 % (21.0-51.0); %Monocytes 15.6 % (0.0-10.0); %Neutrophils 63.0 % (42.0-75.0); Hematocrit 21.0 % (42.0-52.0); Hemoglobin 6.3 g/dL (14.0-18.0); Mean Corpuscular Hemoglobin 27.5 pg (27.0-31.0); Mean Corpuscular Volume 91.7 fL (78.0-98.0); Platelet Count 261 10x3/uL (130-400); Red Blood Cell (RBC) Count 2.29 mill/uL (4.70-6.10); White Blood Cell (WBC) Count 6.15 10x3/uL (4.8-10.8)
[2025-07-17 08:40] LABS: INR-International Normal Ratio 1.2; PTT 31.8 sec (22.9-36.1); Prothrombin Time 15.3 sec (12.0-14.7)
[2025-07-17] MEDS ORDERED: Dextrose 50% Abboject 50 ML SYRINGE SLOW IVP PRN (13:26)
[2025-07-17] MEDS ORDERED: Glucagon 1 MG/ML KIT IM PRN (13:26)
[2025-07-17] MEDS ORDERED: LevoFLOXacin D5W 500 mg (100 mL) BAG ONE (14:12)
[2025-07-17] MEDS ORDERED: PROPOFOL 20 ML ONE (14:22)
[2025-07-17] MEDS ORDERED: Ondansetron PF 4 MG/2 ML Vial ONE (15:23)
[2025-07-17] MEDS ORDERED: Glycopyrrolate 0.2 MG/ML 5 ML SYRINGE ONE (15:29)
[2025-07-17] MEDS ORDERED: SUGAMMADEX SODIUM 200 MG/2 ML VIAL ONE (16:01)
[2025-07-17] MEDS ORDERED: Hyoscyamine SL 0.125 MG TAB ONE (16:25)
[2025-07-17] MEDS ORDERED: Oxybutynin 5 MG TAB PO PRN (16:50)
[2025-07-17] MEDS ORDERED: Nitroglycerin 0.4 MG TAB (25 Tab Bottle) SL PRN (16:52)
[2025-07-17 20:41] LABS: ALT (SGPT) 18 U/L (Less than 45); AST (SGOT) 23 U/L (11-34); Albumin 3.9 g/dL (3.1-4.5); Alkaline Phosphatase 43 U/L (40-110); Anion Gap 17 mmol/L (10-20); BUN (Urea Nitrogen) 18 mg/dL (8.4-25.7); Bilirubin, Total 0.7 mg/dL (0.3-1.2); Calc. Creatinine Clearance 92 mL/min (70-130); Calcium 8.6 mg/dL (7.8-10.44); Carbon Dioxide 21 mmol/L (23-31); Chloride 109 mmol/L (98-107); Globulin 2.3 g/dL (2.4-3.5); Glucose 145 mg/dL (83-110); Potassium 4.1 mmol/L (3.5-5.1); Sodium 143 mmol/L (136-145)
[2025-07-17] MEDS: Acetaminophen 325 MG TAB PO SCH (20:50)
[2025-07-17] MEDS: Losartan 25 MG TAB PO SCH (20:51)
[2025-07-17] MEDS: Pantoprazole 40 MG DR.TAB PO SCH (20:52)
[2025-07-17] MEDS: Furosemide 20 MG TAB PO SCH (20:52)
[2025-07-17] MEDS: Finasteride 5 MG TAB PO SCH (20:52)
[2025-07-17] MEDS: Furosemide 40 MG (4 mL) VIAL SLOW IVP SCH (21:44)
[2025-07-17 22:04] LABS: Hematocrit 31.4 % (42.0-52.0); Hemoglobin 9.7 g/dL (14.0-18.0)
[2025-07-17] MEDS: metFORMIN 500 MG TAB PO SCH (23:42)
[2025-07-18] MEDS: cloNIDine 0.1 MG TAB PO PRN (00:30)
[2025-07-18] MEDS: Potassium Bicarbonate/Cit Ac 20 MEQ TAB PO SCH ×2 (00:30→05:08)
[2025-07-18 04:07] LABS: #Basophils Less than 0.03 10x3/uL (0.0-0.2); #Eosinophils Less than 0.03 10x3/uL (0.0-0.7); #Monocytes 0.92 10x3/uL (0.11-0.59); #Neutrophils 5.90 10x3/uL (1.40-6.50); %Basophils 0.3 % (0.0-1.0); %Eosinophils 0.0 % (0.0-10.0); %Lymphocytes 9.4 % (21.0-51.0); %Monocytes 12.1 % (0.0-10.0); %Neutrophils 77.8 % (42.0-75.0); Hematocrit 28.1 % (42.0-52.0); Hemoglobin 8.7 g/dL (14.0-18.0); Mean Corpuscular Hemoglobin 28.1 pg (27.0-31.0); Mean Corpuscular Volume 90.6 fL (78.0-98.0); Platelet Count 252 10x3/uL (130-400); Red Blood Cell (RBC) Count 3.10 mill/uL (4.70-6.10); White Blood Cell (WBC) Count 7.58 10x3/uL (4.8-10.8)
[2025-07-18 04:23] LABS: ALT (SGPT) 14 U/L (Less than 45); AST (SGOT) 20 U/L (11-34); Albumin 3.6 g/dL (3.1-4.5); Alkaline Phosphatase 40 U/L (40-110); Anion Gap 16 mmol/L (10-20); BUN (Urea Nitrogen) 16 mg/dL (8.4-25.7); Bilirubin, Total 1.0 mg/dL (0.3-1.2); Calc. Creatinine Clearance 90 mL/min (70-130); Calcium 8.7 mg/dL (7.8-10.44); Carbon Dioxide 23 mmol/L (23-31); Chloride 106 mmol/L (98-107); Globulin 2.0 g/dL (2.4-3.5); Glucose 118 mg/dL (83-110); Potassium 3.8 mmol/L (3.5-5.1); Sodium 141 mmol/L (136-145)
[2025-07-18] MEDS: POTASSIUM CHLORIDE 15 MEQ PO SCH (05:08)
[2025-07-18] MEDS ORDERED: Furosemide 40 MG (4 mL) VIAL SLOW IVP SCH (08:30)
[2025-07-18] MEDS: Pantoprazole 40 MG DR.TAB PO SCH (09:00)
[2025-07-18] MEDS: Isosorbide Mononitrate 60 MG ER.TAB PO SCH (09:00)
[2025-07-18] MEDS: Atenolol 25 MG TAB PO SCH (09:00)
[2025-07-18] MEDS: Multivitamin W/ Minerals 1 TAB PO SCH (09:00)
[2025-07-18] MEDS: Furosemide 40 MG (4 mL) VIAL SLOW IVP SCH (11:59)
[2025-07-18] MEDS: LevoFLOXacin 500 mg/D5W 500 MG in Premix 1 BAG IVPB SCH (14:26)
[2025-07-18] MEDS: Losartan 25 MG TAB PO SCH (17:09)
[2025-07-18 19:02] LABS: Hematocrit 29.2 % (42.0-52.0); Hemoglobin 9.0 g/dL (14.0-18.0)
[2025-07-19 04:06] LABS: #Basophils 0.04 10x3/uL (0.0-0.2); #Eosinophils 0.10 10x3/uL (0.0-0.7); #Monocytes 1.10 10x3/uL (0.11-0.59); #Neutrophils 5.00 10x3/uL (1.40-6.50); %Basophils 0.5 % (0.0-1.0); %Eosinophils 1.3 % (0.0-10.0); %Lymphocytes 16.5 % (21.0-51.0); %Monocytes 14.6 % (0.0-10.0); %Neutrophils 66.7 % (42.0-75.0); Hematocrit 28.9 % (42.0-52.0); Hemoglobin 8.8 g/dL (14.0-18.0); Mean Corpuscular Hemoglobin 27.8 pg (27.0-31.0); Mean Corpuscular Volume 91.5 fL (78.0-98.0); Platelet Count 239 10x3/uL (130-400); Red Blood Cell (RBC) Count 3.16 mill/uL (4.70-6.10); White Blood Cell (WBC) Count 7.51 10x3/uL (4.8-10.8)
[2025-07-19 04:30] LABS: ALT (SGPT) 17 U/L (Less than 45); AST (SGOT) 23 U/L (11-34); Albumin 3.4 g/dL (3.1-4.5); Alkaline Phosphatase 39 U/L (40-110); Anion Gap 12 mmol/L (10-20); BUN (Urea Nitrogen) 16 mg/dL (8.4-25.7); Bilirubin, Total 1.2 mg/dL (0.3-1.2); Calc. Creatinine Clearance 97 mL/min (70-130); Calcium 8.4 mg/dL (7.8-10.44); Carbon Dioxide 27 mmol/L (23-31); Chloride 102 mmol/L (98-107); Globulin 2.2 g/dL (2.4-3.5); Glucose 106 mg/dL (83-110); Potassium 3.4 mmol/L (3.5-5.1); Sodium 138 mmol/L (136-145)
[2025-07-19] MEDS: Furosemide 40 MG (4 mL) VIAL SLOW IVP SCH (08:44)
[2025-07-19] MEDS: Losartan 25 MG TAB PO SCH (08:44)
[2025-07-19] MEDS: Ferrous Sulfate 325 MG TAB PO SCH (09:04)
[2025-07-19] MEDS: Potassium Bicarbonate/Cit Ac 20 MEQ TAB PO SCH (17:22)
[2025-07-20 03:53] LABS: #Basophils 0.03 10x3/uL (0.0-0.2); #Eosinophils 0.11 10x3/uL (0.0-0.7); #Monocytes 1.06 10x3/uL (0.11-0.59); #Neutrophils 4.18 10x3/uL (1.40-6.50); %Basophils 0.5 % (0.0-1.0); %Eosinophils 1.7 % (0.0-10.0); %Lymphocytes 16.9 % (21.0-51.0); %Monocytes 16.3 % (0.0-10.0); %Neutrophils 64.3 % (42.0-75.0); Hematocrit 28.6 % (42.0-52.0); Hemoglobin 8.9 g/dL (14.0-18.0); Mean Corpuscular Hemoglobin 27.9 pg (27.0-31.0); Mean Corpuscular Volume 89.7 fL (78.0-98.0); Platelet Count 229 10x3/uL (130-400); Red Blood Cell (RBC) Count 3.19 mill/uL (4.70-6.10); White Blood Cell (WBC) Count 6.50 10x3/uL (4.8-10.8)
[2025-07-20 04:26] LABS: ALT (SGPT) 15 U/L (Less than 45); AST (SGOT) 20 U/L (11-34); Albumin 3.1 g/dL (3.1-4.5); Alkaline Phosphatase 43 U/L (40-110); Anion Gap 13 mmol/L (10-20); BUN (Urea Nitrogen) 13 mg/dL (8.4-25.7); Bilirubin, Total 1.2 mg/dL (0.3-1.2); Calc. Creatinine Clearance 101 mL/min (70-130); Calcium 8.7 mg/dL (7.8-10.44); Carbon Dioxide 25 mmol/L (23-31); Chloride 104 mmol/L (98-107); Globulin 2.2 g/dL (2.4-3.5); Glucose 95 mg/dL (83-110); Potassium 3.7 mmol/L (3.5-5.1); Sodium 138 mmol/L (136-145)
[2025-07-20] MEDS: Aspirin 81 mg Enteric Coated Tablet PO SCH (08:59)
[2025-07-20] MEDS: BROMFENAC SODIUM R EYE SCH (10:19)
[2025-07-20] MEDS: Gabapentin 300 MG CAP PO SCH (12:03)
[2025-07-20] MEDS: Acetaminophen 325 MG TAB PO PRN (14:00)
[2025-07-20] MEDS: HYDROcodone/Acetaminophen 5/325 mg Tablet PO SCH (15:47)
[2025-07-21 04:00] LABS: #Basophils 0.04 10x3/uL (0.0-0.2); #Eosinophils 0.17 10x3/uL (0.0-0.7); #Monocytes 1.14 10x3/uL (0.11-0.59); #Neutrophils 5.37 10x3/uL (1.40-6.50); %Basophils 0.5 % (0.0-1.0); %Eosinophils 2.1 % (0.0-10.0); %Lymphocytes 16.7 % (21.0-51.0); %Monocytes 14.1 % (0.0-10.0); %Neutrophils 66.2 % (42.0-75.0); Hematocrit 31.7 % (42.0-52.0); Hemoglobin 9.8 g/dL (14.0-18.0); Mean Corpuscular Hemoglobin 28.1 pg (27.0-31.0); Mean Corpuscular Volume 90.8 fL (78.0-98.0); Platelet Count 242 10x3/uL (130-400); Red Blood Cell (RBC) Count 3.49 mill/uL (4.70-6.10); White Blood Cell (WBC) Count 8.10 10x3/uL (4.8-10.8)
[2025-07-21 04:46] LABS: ALT (SGPT) 16 U/L (Less than 45); AST (SGOT) 17 U/L (11-34); Albumin 3.4 g/dL (3.1-4.5); Alkaline Phosphatase 48 U/L (40-110); Anion Gap 14 mmol/L (10-20); BUN (Urea Nitrogen) 19 mg/dL (8.4-25.7); Bilirubin, Total 0.7 mg/dL (0.3-1.2); Calc. Creatinine Clearance 64 mL/min (70-130); Calcium 9.0 mg/dL (7.8-10.44); Carbon Dioxide 26 mmol/L (23-31); Chloride 104 mmol/L (98-107); Globulin 2.4 g/dL (2.4-3.5); Glucose 151 mg/dL (83-110); Potassium 3.8 mmol/L (3.5-5.1); Sodium 140 mmol/L (136-145)
[2025-07-21] MEDS: Furosemide 40 MG TAB PO SCH (08:54)
[2025-07-21] MEDS: Gabapentin 300 MG CAP PO SCH ×2 (08:55→21:22)
[2025-07-22 04:38] LABS: #Basophils 0.04 10x3/uL (0.0-0.2); #Eosinophils 0.27 10x3/uL (0.0-0.7); #Monocytes 1.08 10x3/uL (0.11-0.59); #Neutrophils 4.87 10x3/uL (1.40-6.50); %Basophils 0.5 % (0.0-1.0); %Eosinophils 3.6 % (0.0-10.0); %Lymphocytes 16.1 % (21.0-51.0); %Monocytes 14.4 % (0.0-10.0); %Neutrophils 65.0 % (42.0-75.0); Hematocrit 31.5 % (42.0-52.0); Hemoglobin 9.5 g/dL (14.0-18.0); Mean Corpuscular Hemoglobin 27.5 pg (27.0-31.0); Mean Corpuscular Volume 91.0 fL (78.0-98.0); Platelet Count 242 10x3/uL (130-400); Red Blood Cell (RBC) Count 3.46 mill/uL (4.70-6.10); White Blood Cell (WBC) Count 7.50 10x3/uL (4.8-10.8)
[2025-07-22 05:05] LABS: ALT (SGPT) 15 U/L (Less than 45); AST (SGOT) 25 U/L (11-34); Albumin 3.2 g/dL (3.1-4.5); Alkaline Phosphatase 51 U/L (40-110); Anion Gap 13 mmol/L (10-20); BUN (Urea Nitrogen) 24 mg/dL (8.4-25.7); Bilirubin, Total 0.5 mg/dL (0.3-1.2); Calc. Creatinine Clearance 71 mL/min (70-130); Calcium 8.7 mg/dL (7.8-10.44); Carbon Dioxide 27 mmol/L (23-31); Chloride 105 mmol/L (98-107); Globulin 2.5 g/dL (2.4-3.5); Glucose 178 mg/dL (83-110); Potassium 3.7 mmol/L (3.5-5.1); Sodium 141 mmol/L (136-145)
[2025-07-23 00:28] VITALS: TEMP 97.7
[2025-07-23 04:06] LABS: #Basophils 0.06 10x3/uL (0.0-0.2); #Eosinophils 0.37 10x3/uL (0.0-0.7); #Monocytes 1.20 10x3/uL (0.11-0.59); #Neutrophils 4.64 10x3/uL (1.40-6.50); %Basophils 0.8 % (0.0-1.0); %Eosinophils 5.0 % (0.0-10.0); %Lymphocytes 15.2 % (21.0-51.0); %Monocytes 16.1 % (0.0-10.0); %Neutrophils 62.4 % (42.0-75.0); Hematocrit 33.7 % (42.0-52.0); Hemoglobin 10.4 g/dL (14.0-18.0); Mean Corpuscular Hemoglobin 27.6 pg (27.0-31.0); Mean Corpuscular Volume 89.4 fL (78.0-98.0); Platelet Count 247 10x3/uL (130-400); Red Blood Cell (RBC) Count 3.77 mill/uL (4.70-6.10); White Blood Cell (WBC) Count 7.44 10x3/uL (4.8-10.8)
[2025-07-23 04:25] LABS: ALT (SGPT) 14 U/L (Less than 45); AST (SGOT) 17 U/L (11-34); Albumin 3.5 g/dL (3.1-4.5); Alkaline Phosphatase 53 U/L (40-110); Anion Gap 15 mmol/L (10-20); BUN (Urea Nitrogen) 21 mg/dL (8.4-25.7); Bilirubin, Total 0.6 mg/dL (0.3-1.2); Calc. Creatinine Clearance 74 mL/min (70-130); Calcium 9.1 mg/dL (7.8-10.44); Carbon Dioxide 26 mmol/L (23-31); Chloride 103 mmol/L (98-107); Globulin 2.4 g/dL (2.4-3.5); Glucose 110 mg/dL (83-110); Potassium 3.8 mmol/L (3.5-5.1); Sodium 140 mmol/L (136-145)
[2025-07-23 11:31] VITALS: BP 147/77
== END 2025-07-23 14:55 | disposition home or self-care (01) | DRG 987 ==
LOC: SDC 07:24 → PCU 13:26
PROVIDERS: ADMIT Family Medicine; ATTEND Family Medicine
PROC: 0T768DZ Dilation of Right Ureter with Intraluminal Device, Via Natural or Artificial Opening Endoscopic (ICD-10-PCS; principal; 2025-07-17)
PROC: 0TC68ZZ Extirpation of Matter from Right Ureter, Via Natural or Artificial Opening Endoscopic (ICD-10-PCS; 2025-07-17)
PROC: 30233N1 Transfusion of Nonautologous Red Blood Cells into Peripheral Vein, Percutaneous Approach (ICD-10-PCS; 2025-07-17)
PROC: BT1DZZZ Fluoroscopy of Right Kidney, Ureter and Bladder (ICD-10-PCS; 2025-07-17)
PROC: 3E03329 Introduction of Other Anti-infective into Peripheral Vein, Percutaneous Approach (ICD-10-PCS; 2025-07-17)
PROC: 0DB38ZX Excision of Lower Esophagus, Via Natural or Artificial Opening Endoscopic, Diagnostic (ICD-10-PCS; 2025-07-18)
PROC: 0T7D8ZZ Dilation of Urethra, Via Natural or Artificial Opening Endoscopic (ICD-10-PCS; 2025-07-22)
PROC: B24BZZ4 Ultrasonography of Heart with Aorta, Transesophageal (ICD-10-PCS; 2025-07-22)
PROC: 0T2BX0Z Change Drainage Device in Bladder, External Approach (ICD-10-PCS; 2025-07-23)
DX: K92.1 Melena (principal); I50.33 Acute on chronic diastolic (congestive) heart failure; I48.92 Unspecified atrial flutter; N13.2 Hydronephrosis with renal and ureteral calculous obstruction; I48.21 Permanent atrial fibrillation; I42.9 Cardiomyopathy, unspecified; Z66 Do not resuscitate; D50.9 Iron deficiency anemia, unspecified; K21.9 Gastro-esophageal reflux disease without esophagitis; M19.90 Unspecified osteoarthritis, unspecified site; G47.33 Obstructive sleep apnea (adult) (pediatric); K44.9 Diaphragmatic hernia without obstruction or gangrene; K22.70 Barrett's esophagus without dysplasia; Z96.0 Presence of urogenital implants; E11.9 Type 2 diabetes mellitus without complications; I11.0 Hypertensive heart disease with heart failure; I25.10 Atherosclerotic heart disease of native coronary artery without angina pectoris; Z87.441 Personal history of nephrotic syndrome; Z95.1 Presence of aortocoronary bypass graft; Z88.0 Allergy status to penicillin; Z79.899 Other long term (current) drug therapy; Z79.2 Long term (current) use of antibiotics; N32.3 Diverticulum of bladder; K31.7 Polyp of stomach and duodenum; N35.912 Unspecified bulbous urethral stricture, male; Z79.84 Long term (current) use of oral hypoglycemic drugs; Z79.01 Long term (current) use of anticoagulants; N40.0 Benign prostatic hyperplasia without lower urinary tract symptoms; Z87.891 Personal history of nicotine dependence; I08.1 Rheumatic disorders of both mitral and tricuspid valves; I45.10 Unspecified right bundle-branch block; E78.00 Pure hypercholesterolemia, unspecified; R31.9 Hematuria, unspecified; R05.3 Chronic cough; M54.31 Sciatica, right side; R33.9 Retention of urine, unspecified
CPT/HCPCS: 36415; 36416; 36430; 71045; 74018; 74176; 74420; 80053; 82365; 85025; 85610; 85730; 86850; 86900; 86901; 88300; 88305; 93312; C1758; C1769; C2617; J1100; J1815; J1940; J1956; J2405; J2704; J3010; P9016; Q9967

== ENCOUNTER 2025-07-26 11:44 | Emergency (ER) | payer MEDICARE ==
[2025-07-26 12:14] LABS: #Basophils Less than 0.03 10x3/uL (0.0-0.2); #Eosinophils 0.11 10x3/uL (0.0-0.7); #Monocytes 0.94 10x3/uL (0.11-0.59); #Neutrophils 4.56 10x3/uL (1.40-6.50); %Basophils 0.3 % (0.0-1.0); %Eosinophils 1.6 % (0.0-10.0); %Lymphocytes 16.2 % (21.0-51.0); %Monocytes 13.9 % (0.0-10.0); %Neutrophils 67.3 % (42.0-75.0); Hematocrit 32.4 % (42.0-52.0); Hemoglobin 10.3 g/dL (14.0-18.0); Mean Corpuscular Hemoglobin 27.8 pg (27.0-31.0); Mean Corpuscular Volume 87.3 fL (78.0-98.0); Platelet Count 222 10x3/uL (130-400); Red Blood Cell (RBC) Count 3.71 mill/uL (4.70-6.10); White Blood Cell (WBC) Count 6.78 10x3/uL (4.8-10.8)
[2025-07-26] MEDS ORDERED: Acetaminophen 500 MG TAB ONE (12:27)
[2025-07-26] MEDS ORDERED: Ketorolac Tromethamine 30 MG (1 mL) VIAL ONE ×2 (12:28→13:40)
[2025-07-26 12:30] LABS: ALT (SGPT) 11 U/L (Less than 45); AST (SGOT) 18 U/L (11-34); Albumin 3.5 g/dL (3.1-4.5); Alkaline Phosphatase 58 U/L (40-110); Anion Gap 9 mmol/L (10-20); BUN (Urea Nitrogen) 39 mg/dL (8.4-25.7); Bilirubin, Total 0.5 mg/dL (0.3-1.2); Calc. Creatinine Clearance 0 mL/min (70-130); Calcium 9.3 mg/dL (7.8-10.44); Carbon Dioxide 21 mmol/L (23-31); Chloride 109 mmol/L (98-107); Globulin 2.4 g/dL (2.4-3.5); Glucose 102 mg/dL (83-110); Potassium 4.3 mmol/L (3.5-5.1); Sodium 135 mmol/L (136-145)
[2025-07-26 15:41] LABS: Bacteria/HPF None Seen HPF (None Seen); CAUTI Indications for Culture Pelvic or flank pain; Glucose, Urine (Dipstick) Normal (Negative); Leukocyte Negative Leu/uL (Negative); Protein, Urine (Dipstick) Negative (Neg-Trace); Specific Gravity, Urine 1.018 (1.002-1.036); WBC/HPF 0-3 HPF (0-3)
[2025-07-26 15:54] LABS: Urine Culture Reflex No No
== END 2025-07-26 16:14 | disposition home or self-care (01) ==
LOC: ERS 11:44
DX: T46.5X1A Poisoning by other antihypertensive drugs, accidental (unintentional), initial encounter (principal); I95.89 Other hypotension; N39.0 Urinary tract infection, site not specified; I50.9 Heart failure, unspecified; E11.9 Type 2 diabetes mellitus without complications; I48.91 Unspecified atrial fibrillation; I25.2 Old myocardial infarction; E78.5 Hyperlipidemia, unspecified; K21.9 Gastro-esophageal reflux disease without esophagitis; Z79.82 Long term (current) use of aspirin; Z79.84 Long term (current) use of oral hypoglycemic drugs; Z79.01 Long term (current) use of anticoagulants; Z79.899 Other long term (current) drug therapy
CPT/HCPCS: 51702; 80053; 81001; 83880; 85025; 93005; 96374; 96376; 99285; J1885; 36415

== ENCOUNTER 2025-09-17 12:08 | Outpatient (CLI) | payer MEDICARE | END 2025-09-17 12:09 | disposition home or self-care (01) | LOC: ULT 12:08 | PROVIDERS: ATTEND Urology | DX: N20.0 Calculus of kidney (principal); Z98.890 Other specified postprocedural states; N28.1 Cyst of kidney, acquired | CPT/HCPCS: 76770 ==